=== PATIENT | male | born 1950 | race Caucasian/White ===

== ENCOUNTER 2021-03-25 06:12 | Outpatient (REF) | payer MEDICARE, SELFPAY ==
[2021-03-25 11:29] LABS: MANUAL DIFF FLAG NO
[2021-03-25 11:40] LABS: Basophils Percent Auto 0.5 % (0-2); Eosinophils Absolute Auto 0.4 X10*3/uL (0.0-0.4); Eosinophils Percent Auto 5.9 % (0-4); Hematocrit 46.6 % (42-52); Hemoglobin 15.7 g/dl (14.0-18.0); Imm Gran Abs Auto 0.04 X10*3/uL (0.00-0.03); Imm Gran Pct Auto 0.6 % (0.0-0.4); Lymphocytes Absolute Auto 1.9 X10*3/uL (1.2-4.9); Lymphocytes Percent Auto 29.6 % (20-40); Mean Corpuscular HGB Conc 33.7 g/dl (31.0-36.0); Mean Corpuscular Hemoglobin 31.9 pg (27.0-33.0); Mean Corpuscular Volume 94.7 fL (80-98); Mean Platelet Volume 10.5 fL (9.4-12.4); Monocytes Absolute Auto 0.7 X10*3/uL (0.1-1.2); Monocytes Percent Auto 10.4 % (2-11); Neutrophils Absolute Auto 3.4 X10*3/uL (2.0-8.3); Platelet Count 195 X10*3/uL (160-400); Red Blood Count 4.92 X10*6/uL (4.60-5.80); Red Cell Distribution Width 13.2 % (11.0-16.0); White Blood Count 6.3 X10*3/uL (4.8-10.8)
[2021-03-25 11:59] LABS: Alanine Aminotransferase 30 U/L (0-40); Albumin Level 4.2 g/dL (3.5-5.0); Alkaline Phosphatase 67 U/L (39-117); Anion Gap 11 (12-20); Aspartate Amino Transferase 30 U/L (5-37); Blood Urea Nitrogen 23 mg/dL (9-16); Calcium 9.5 mg/dL (8.4-10.2); Carbon Dioxide 31 mmol/L (22-29); Chloride 102 mmol/L (96-108); Cholesterol 198 mg/dL; Estimated Glomerular Filt Rate > 60; Glucose Fasting 105 mg/dL (60-99); HDL Cholesterol 82 mg/dL; LDL Cholesterol Calculated 95 mg/dl; Potassium 4.1 mmol/L (3.3-5.1); Sodium 140 mmol/L (135-145); Total Protein 6.6 g/dL (6.5-8.0); Triglycerides 108 mg/dL
[2021-03-25 12:18] LABS: Prostate Specific Antigen 1.56 ng/mL (<0.05-4.0)
== END 2021-03-25 06:13 | disposition home or self-care (01) ==
LOC: HO.HMGCLDS 06:12
PROVIDERS: PCP Internal Medicine; Visit Provider Internal Medicine
DX: E78.00 Pure hypercholesterolemia, unspecified (principal); I10 Essential (primary) hypertension; N40.0 Benign prostatic hyperplasia without lower urinary tract symptoms; Z12.5 Encounter for screening for malignant neoplasm of prostate
CPT/HCPCS: 36415; 80053; 80061; 84153; 85025

== ENCOUNTER 2021-05-02 09:23 | Outpatient (REF) | payer MEDICARE, SELFPAY | END 2021-05-02 09:24 | disposition home or self-care (01) | LOC: HO.SH 09:23 | PROVIDERS: Visit Provider Internal Medicine | DX: Z13.89 Encounter for screening for other disorder (principal) ==

== ENCOUNTER 2021-05-06 10:48 | Outpatient (REF) | payer MEDICARE, SELFPAY ==
--- NOTE | 2021-05-06 12:17 | MHC.AU.AHA ---
Adult Audiological Evaluation Date of Visit: 05/06/21 Reason for Appointment: Audiological evaluation to monitor the status of Mr. Zarate's hearing loss. He has a known bilateral, sensorineural hearing loss and uses hearing aids binaurally. He feels his hearing may be gradually decreasing. He denies any significant changes to his medical history since his last visit. Previous Hearing Test Results: [facility] [place] - Normal hearing at 250-500 Hz, sloping to a mild to severe sensorineural hearing loss from 750-8000 Hz bilaterally, right ear slightly worse than the left. Ear History: History of occupational noise exposure?: Yes Medical History: Medical History: High Blood Pressure, high cholesterol Allergies: penicillin Hearing Instrument History- Right Ear: Head Start Coordinator: [employer] Model: Cogito Q50-312 Serial Number: [id number] Battery Size: 312 Repair Warranty: 05/23/2016 Loss and Damage Warranty: 05/23/2015 Dispensed By: [facility] Date of Fittin03/02/2014 Hearing Instrument History- Left Ear: Head Start Coordinator: [employer] Model: U-Planner.comejslyhl Q50-312 Serial Number: [id number] Battery Size: 312 Warranty: 05/23/2016 Loss and Damage Warranty: 05/23/2015 Dispensed By: [facility] Date of Fittin03/02/2014 Otoscopy: Right Ear: Dry skin/wax occluding canal, removed with suction successfully Left Ear: Unremarkable Tympanometry: Tympanometry performed due to: To determine if cerumen blockage is fully occluding canal(s) Right Ear: Normal Middle Ear System (Type A) Left Ear: Normal Middle Ear System (Type A) Hearing Evaluation: Transducer(s) Used: Circumaural Headphones, Bone Conduction Method: Conventional Audiometry Stimuli Used: Pure Tones Right Ear: Description of Hearing: Normal hearing from 250-500 Hz, sloping to a mild to moderately-severe sensorineural hearing loss from 750-8000 Hz. Left Ear: Description of Hearing: Normal hearing from 250-500 Hz, sloping to a mild to severe sensorineural hearing loss from 750-8000 Hz. Speech Recognition Threshold (SRT): Method Used: Monitored Live Voice Stimuli Used: Spondee Words Right Ear: 20 dBHL Left Ear: 25 dBHL Word Discrimination: Method: Recorded Lists Word Lists Used: NU-6 Right Ear: 88% at 75 dBHL Left Ear: 80% at 75 dBHL Comparison: Compared to most recent evaluation: Slight improvement in right ear thresholds and significant improvement in right ear word recognition scores compared to testing from 2020. There was partially occluding cerumen in the right ear in 2020, which may have contributed to decreased thresholds. Recommendations: Audiological re-evaluation in one year. Hearing aid maintenance performed today. Hearing aid(s) reprogrammed with updated test results. Given the age of Mr. Zarate's current hearing aids, updated amplification is recommended. Discussed available hearing aid styles and technologies. Mr. Zarate will consider his options and he was welcomed to return for a hearing aid consultation if he decides he would like to pursue new hearing aids through our clinic. Diagnosis: Primary Diagnosis: H90.3 Bilateral Sensorineural Hearing Loss Secondary Diagnosis: H61.21 Impacted Cerumen, Right Ear Services Performed: Comprehensive Audiological Evaluation (CPT 07963) Tympanometry (CPT 67697) Signature: Provider: Eron Izaguirre, CCC-A
== END 2021-05-06 10:49 | disposition home or self-care (01) ==
LOC: HO.SH 10:48
PROVIDERS: Visit Provider Internal Medicine
DX: H90.3 Sensorineural hearing loss, bilateral (principal); H61.21 Impacted cerumen, right ear
CPT/HCPCS: 92557; 92567

== ENCOUNTER 2021-05-06 11:59 | Outpatient (REF) | payer SELFPAY | END 2021-05-06 12:00 | disposition home or self-care (01) | LOC: HO.HAP 11:59 | PROVIDERS: Visit Provider Internal Medicine | DX: Z46.1 Encounter for fitting and adjustment of hearing aid (principal); H90.3 Sensorineural hearing loss, bilateral | CPT/HCPCS: V5267 ==

== ENCOUNTER 2022-03-18 06:04 | Outpatient (REF) | payer MEDICARE, SELFPAY ==
[2022-03-18 11:17] LABS: MANUAL DIFF FLAG NO
[2022-03-18 11:26] LABS: Basophils Percent Auto 0.7 % (0-2); Eosinophils Absolute Auto 0.3 X10*3/uL (0.0-0.4); Eosinophils Percent Auto 5.9 % (0-4); Hematocrit 47.9 % (42.0-52.0); Hemoglobin 15.8 g/dl (14.0-18.0); Imm Gran Abs Auto 0.02 X10*3/uL (0.00-0.03); Imm Gran Pct Auto 0.4 % (0.0-0.4); Lymphocytes Absolute Auto 1.6 X10*3/uL (1.2-4.9); Lymphocytes Percent Auto 28.7 % (20-40); Mean Corpuscular Hemoglobin 31.2 pg (27.0-33.0); Mean Corpuscular Volume 94.7 fL (80.0-98.0); Mean Platelet Volume 10.6 fL (9.4-12.4); Monocytes Absolute Auto 0.7 X10*3/uL (0.1-1.2); Monocytes Percent Auto 12.4 % (2-11); Neutrophils Absolute Auto 2.9 x10*3/uL (2.0-8.3); Neutrophils Percent Auto 51.9 % (45-73); Platelet Count 209 X10*3/uL (160-400); Red Blood Count 5.06 X10*6/uL (4.60-5.80); Red Cell Distribution Width 13.6 % (11.0-16.0); White Blood Count 5.6 X10*3/uL (4.8-10.8)
[2022-03-18 11:50] LABS: Alanine Aminotransferase 23 U/L (0-40); Albumin Level 4.5 g/dL (3.5-5.0); Alkaline Phosphatase 68 U/L (39-117); Anion Gap 12 (12-20); Aspartate Amino Transferase 24 U/L (5-37); Bilirubin Total 1.4 mg/dL (0.0-1.0); Blood Urea Nitrogen 20 mg/dL (9-16); Calcium 9.4 mg/dL (8.4-10.2); Carbon Dioxide 31 mmol/L (22-29); Chloride 101 mmol/L (96-108); Cholesterol 222 mg/dL; Estimated Glomerular Filt Rate > 60; Glucose Fasting 109 mg/dL (60-99); HDL Cholesterol 92 mg/dL; LDL Cholesterol Calculated 115 mg/dl; Sodium 140 mmol/L (135-145); Total Protein 7.1 g/dL (6.5-8.0); Triglycerides 78 mg/dL
[2022-03-18 11:59] LABS: Appearance Urine CLEAR; Color Urine YELLOW; Glucose Urine UA NEG (NEG); Leukocyte Esterase Urine NEG (NEG); Nitrite Urine NEG (NEG); PH 6.5 (5.0-8.0); Urine Blood NEG (NEG); Urine Ketones NEG (NEG); Urine Protein NEG (NEG-TRACE)
[2022-03-18 12:07] LABS: Prostate Specific Antigen 1.85 ng/mL (<0.05-4.0)
== END 2022-03-18 06:05 | disposition home or self-care (01) ==
LOC: HO.HMGCLDS 06:04
PROVIDERS: PCP Internal Medicine; Visit Provider Internal Medicine
DX: Z12.5 Encounter for screening for malignant neoplasm of prostate (principal); N40.0 Benign prostatic hyperplasia without lower urinary tract symptoms; E78.00 Pure hypercholesterolemia, unspecified; I10 Essential (primary) hypertension
CPT/HCPCS: 36415; 80053; 80061; 81003; 84153; 85025

== ENCOUNTER 2022-06-26 08:07 | Outpatient (REF) | payer MEDICARE, SELFPAY | END 2022-06-26 08:08 | disposition home or self-care (01) | LOC: HO.SH 08:07 | PROVIDERS: Visit Provider Internal Medicine | DX: Z01.118 Encounter for examination of ears and hearing with other abnormal findings (principal); H90.3 Sensorineural hearing loss, bilateral | CPT/HCPCS: 92557; 92567 ==

== ENCOUNTER 2023-04-06 06:50 | Outpatient (REF) | payer MEDICARE, SELFPAY ==
[2023-04-06 11:37] LABS: MANUAL DIFF FLAG NO
[2023-04-06 11:56] LABS: Basophils Percent Auto 0.5 % (0-2); Eosinophils Absolute Auto 0.3 X10*3/uL (0.0-0.4); Eosinophils Percent Auto 4.5 % (0-4); Hematocrit 46.3 % (42.0-52.0); Hemoglobin 15.1 g/dl (14.0-18.0); Imm Gran Abs Auto 0.02 X10*3/uL (0.00-0.03); Imm Gran Pct Auto 0.3 % (0.0-0.4); Lymphocytes Absolute Auto 1.6 X10*3/uL (1.2-4.9); Lymphocytes Percent Auto 27.6 % (20-40); Mean Corpuscular HGB Conc 32.6 g/dl (31.0-36.0); Mean Corpuscular Hemoglobin 30.6 pg (27.0-33.0); Mean Corpuscular Volume 93.9 fL (80.0-98.0); Monocytes Absolute Auto 0.7 X10*3/uL (0.1-1.2); Monocytes Percent Auto 11.3 % (2-11); Neutrophils Absolute Auto 3.2 x10*3/uL (2.0-8.3); Neutrophils Percent Auto 55.8 % (45-73); Platelet Count 201 X10*3/uL (160-400); Red Blood Count 4.93 X10*6/uL (4.60-5.80); Red Cell Distribution Width 14.9 % (11.0-16.0); White Blood Count 5.7 X10*3/uL (4.8-10.8)
[2023-04-06 12:32] LABS: Alanine Aminotransferase 26 U/L (0-40); Albumin Level 4.2 g/dL (3.5-5.0); Alkaline Phosphatase 58 U/L (39-117); Anion Gap 10 (12-20); Aspartate Amino Transferase 29 U/L (5-37); Bilirubin Total 0.8 mg/dL (0.0-1.0); Blood Urea Nitrogen 17 mg/dL (9-16); Calcium 9.6 mg/dL (8.4-10.2); Carbon Dioxide 32 mmol/L (22-29); Chloride 103 mmol/L (96-108); Cholesterol 209 mg/dL (<200); Estimated Glomerular Filt Rate > 60; Glucose Fasting 112 mg/dL (60-99); HDL Cholesterol 98 mg/dL (>40); LDL Cholesterol Calculated 94 mg/dL (<100); Potassium 4.1 mmol/L (3.3-5.1); Sodium 141 mmol/L (135-145); Total Protein 6.8 g/dL (6.5-8.0); Triglycerides 89 mg/dL (<150)
== END 2023-04-06 06:51 | disposition home or self-care (01) ==
LOC: HO.HMGCLDS 06:50
PROVIDERS: PCP Internal Medicine; Visit Provider Internal Medicine
DX: I10 Essential (primary) hypertension (principal); E78.00 Pure hypercholesterolemia, unspecified; N40.0 Benign prostatic hyperplasia without lower urinary tract symptoms; Z12.5 Encounter for screening for malignant neoplasm of prostate
CPT/HCPCS: 36415; 80053; 80061; 84153; 85025

== ENCOUNTER 2023-06-04 14:51 | Outpatient (REF) | payer MEDICARE, SELFPAY ==
[2023-06-04 16:08] LABS: MANUAL DIFF FLAG NO
[2023-06-04 16:11] LABS: Basophils Percent Auto 0.4 % (0-2); Eosinophils Absolute Auto 0.2 X10*3/uL (0.0-0.4); Eosinophils Percent Auto 1.9 % (0-4); Hematocrit 41.4 % (42.0-52.0); Hemoglobin 13.9 g/dl (14.0-18.0); Imm Gran Abs Auto 0.02 X10*3/uL (0.00-0.03); Imm Gran Pct Auto 0.3 % (0.0-0.4); Lymphocytes Absolute Auto 1.4 X10*3/uL (1.2-4.9); Lymphocytes Percent Auto 18.3 % (20-40); Mean Corpuscular HGB Conc 33.6 g/dl (31.0-36.0); Mean Corpuscular Hemoglobin 31.1 pg (27.0-33.0); Mean Corpuscular Volume 92.6 fL (80.0-98.0); Mean Platelet Volume 10.5 fL (9.4-12.4); Monocytes Absolute Auto 0.8 X10*3/uL (0.1-1.2); Monocytes Percent Auto 9.5 % (2-11); Neutrophils Absolute Auto 5.5 x10*3/uL (2.0-8.3); Neutrophils Percent Auto 69.6 % (45-73); Platelet Count 249 X10*3/uL (160-400); Red Blood Count 4.47 X10*6/uL (4.60-5.80); Red Cell Distribution Width 13.7 % (11.0-16.0); White Blood Count 7.9 X10*3/uL (4.8-10.8)
[2023-06-04 16:58] LABS: Alanine Aminotransferase 25 U/L (0-40); Albumin Level 3.9 g/dL (3.5-5.0); Alkaline Phosphatase 69 U/L (39-117); Anion Gap 12 (12-20); Aspartate Amino Transferase 31 U/L (5-37); Bilirubin Total 0.6 mg/dL (0.0-1.0); Blood Urea Nitrogen 19 mg/dL (9-16); C Reactive Protein < 0.10 mg/dL (< or = 0.50); Calcium 9.4 mg/dL (8.4-10.2); Carbon Dioxide 27 mmol/L (22-29); Chloride 106 mmol/L (96-108); Estimated Glomerular Filt Rate > 60; Glucose Random 132 mg/dL (60-115); Potassium 3.7 mmol/L (3.3-5.1); Sodium 141 mmol/L (135-145); Total Protein 6.5 g/dL (6.5-8.0)
== END 2023-06-04 14:52 | disposition home or self-care (01) ==
LOC: HO.HMGCLDS 14:51
PROVIDERS: PCP Internal Medicine; Visit Provider Internal Medicine
DX: R51.9 Headache, unspecified (principal); I10 Essential (primary) hypertension; E78.00 Pure hypercholesterolemia, unspecified
CPT/HCPCS: 36415; 80053; 85025; 86140

== ENCOUNTER 2023-10-06 09:34 | Outpatient (REF) | payer SELFPAY | END 2023-10-06 09:35 | disposition home or self-care (01) | LOC: HO.HAP 09:34 | PROVIDERS: Visit Provider Internal Medicine | DX: Z13.89 Encounter for screening for other disorder (principal) ==

== ENCOUNTER 2023-10-14 08:47 | Outpatient (REF) | payer SELFPAY | END 2023-10-14 08:48 | disposition home or self-care (01) | LOC: HO.HAP 08:47 | PROVIDERS: Visit Provider Internal Medicine | DX: Z46.1 Encounter for fitting and adjustment of hearing aid (principal) | CPT/HCPCS: V5299 ==

== ENCOUNTER 2023-11-24 06:26 | Day surgery (SDC) | payer MEDICARE, SELFPAY ==
[2023-11-19 09:16] VITALS: BMI 25.5
[2023-11-24 06:31] VITALS: BP 151/98; PULSE 58; RESP 19; TEMP 36.8; O2SAT 97; BMI 25.4
[2023-11-24] MEDS: Lactated Ringers 1,000 ML 50 ML IVCONT (07:02)
--- NOTE | 2023-11-24 07:17 | HO.ANESPROP2 ---
[facility] Past Medical History Medical History (Updated 11/19/23 @ 09:17 by Sonia Moscoso RN) Elevated cholesterol HTN (hypertension) Family History Family history of problems with anesthesia: No Surgical History Surgical History (Updated 11/19/23 @ 09:17 by Sonia Moscoso RN) Hx of vasectomy H/O colonoscopy History of Problems with Anesthesia: No Social History Social History (Updated 11/19/23 @ 09:22 by Sonia Moscoso RN) Patient Tobacco Use Status: Former Tobacco user Quit Date: >10 years ago Tobacco use type: Cigarette Are you DNR?: No Advance Directives: No Advance Directives Information Provided: Yes Meds Allergies Allergy/AdvReac Type Severity Reaction Status Date / Time Penicillins [PENICILLINS] Allergy Intermediate HIVES Verified 11/19/23 09:16 Active Medications: Current Medications Lactated Ringer's (Lr) 1,000 mls @ 50 mls/hr IVCONT .Q20H MAXIMO Last Admin: 11/24/23 07:02 Dose: 50 mls/hr Sodium Biphosphate/Sodium Phosphate (Sodium Phosphate,Bucks-Dibasic 133 Ml Enema) 133 ml [place] ONCE PRN PRN Reason: Poor Colonoscopy Prep Results Home Medications ?Medication ?Instructions ?Recorded ?Confirmed ?Last Taken ?Type atorvastatin 10 mg tablet 10 mg PO DAILY 11/19/23 11/19/23 11/22/23 History flaxseed oil 1,000 mg capsule 1,000 mg PO DAILY 11/19/23 11/19/23 11/22/23 History lisinopril 5 mg tablet 5 mg PO DAILY 11/19/23 11/19/23 11/24/23 History multivitamin 1 tab PO DAILY 11/19/23 11/19/23 11/22/23 History niacin 250 mg tablet,extended 250 mg PO DAILY 11/19/23 11/19/23 11/22/23 History release Exam Height,Weight and Vital Signs: Height 5 ft 8.25 in Weight 76.3 kg Last Vital Signs Temp 98.2 F 11/24/23 06:31 Pulse 58 11/24/23 06:31 Resp 19 11/24/23 06:31 BP 151/98 H 11/24/23 06:31 Pulse Ox 97 11/24/23 06:31 O2 Del Method Room Air 11/24/23 06:31 Airway Mallampati Class: II TM Dist: >3cm Neck ROM: Full Loose/Missing/Broken Teeth: No Heart: rrr Lungs: cta Assessment and Plan Assessment Anesthesia Assessment: Anesthesia Plan Discussed and Chart Reviewed Final Anesthetic Review Family History of Problems with Anesthesia: No History of Problems with Anesthesia: No NPO: Yes ASA Class: II Final Preanesthetic Review: No Changes in Pt Med Stat, Meds/Allgs Chart Reviewed, Consent Obtained/Reviewed and Anes Risks/Benef Reviewed Patient Risk: Intermediate Procedure Risk: Intermediate Anesthetic Plan Anesthetic Plan: MAC: Disposition: Standard PACU
[2023-11-24 08:20] VITALS: BP 110/71; PULSE 62; RESP 18; TEMP 36.6; O2SAT 100
--- NOTE | 2023-11-24 08:22 | PM.OP ---
Brief Operative Note Date of Service: 11/24/23 Pre-op diagnosis: Screening Post-op diagnosis: other (Diverticulosis) Procedure: Colonoscopy to the cecum and TI Surgeon: Timothy Casper MD Anesthesia: MAC Was an Fertilizer Processing Supervisor used for this Procedure?: No Estimated blood loss (mL): 0 Pathology: none sent Condition: stable Disposition: PACU
[2023-11-24 08:35] VITALS: BP 122/79; PULSE 54; RESP 16; TEMP 36.6; O2SAT 100
--- NOTE | 2023-11-24 09:01 | OP_ITS ---
DATE OF SERVICE: 11/24/2023 SURGEON: Timothy Casper MD INDICATIONS: The patient presents for evaluation of colorectal cancer screening and personal history of tubular adenomas of the colon. Full consent was obtained from him for this, including risks of bleeding and perforation. PREOPERATIVE DIAGNOSIS: POSTOPERATIVE DIAGNOSIS: PROCEDURE PERFORMED: Colonoscopy to the cecum and terminal ileum. ESTIMATED BLOOD LOSS: COMPLICATIONS: ANESTHESIA: Monitored anesthesia care. ASSISTANTS: SPECIMENS: PREOPERATIVE DIAGNOSES: Colorectal cancer screening and personal history of tubular adenomas of the colon. POSTOPERATIVE DIAGNOSES: Colorectal cancer screening and personal history of tubular adenomas of the colon, sigmoid diverticulosis, and internal hemorrhoids. DESCRIPTION OF PROCEDURE: The patient was placed in the left lateral decubitus position. The digital rectal exam revealed no abnormalities. The Olympus video pediatric colonoscope was entered into the rectum and advanced easily to the cecum. Once in the cecum, I did identify normal-appearing cecal pouch with appendiceal orifice and a normal-appearing ileocecal valve. The terminal ileum was cannulated and appeared normal. The scope was withdrawn back in the colon. The entire cecum and ileocecal valve appeared normal. The scope was slowly withdrawn assessing all mucosal surfaces carefully. Preparation was excellent. I did not visualize any sign of polyps, colitis, or angiodysplasia. There was a mild amount of sigmoid diverticulosis. In the rectum, scope was retroflexed, visualizing internal hemorrhoids, but no other pathology. The rectal mucosa appeared normal. The scope was straightened and withdrawn from the patient. He tolerated the procedure well and was returned to recovery area in stable condition. IMPRESSION: 1. Diverticulosis. 2. Internal hemorrhoids. PLAN: Given his previous history of tubular adenomas, I would recommend a followup coloscopy in 5 years for further screening. He will otherwise see me on a p.r.n. basis. MD HELENA Levine/KAYLA / [phone]
== END 2023-11-24 09:09 | disposition home or self-care (01) ==
PROVIDERS: PCP Internal Medicine; Visit Provider Internal Medicine
PROC: 0DJD8ZZ Inspection of Lower Intestinal Tract, Via Natural or Artificial Opening Endoscopic (ICD-10-PCS; CPT 45378; principal; 2023-11-24 07:30)
DX: Z12.11 Encounter for screening for malignant neoplasm of colon (principal); K57.30 Diverticulosis of large intestine without perforation or abscess without bleeding; K64.8 Other hemorrhoids; Z86.010 Personal history of colon polyps; I10 Essential (primary) hypertension
CPT/HCPCS: 45378; J2704

== ENCOUNTER 2023-12-02 14:16 | Outpatient (REF) | payer MEDICARE, SELFPAY | END 2023-12-02 14:17 | disposition home or self-care (01) | LOC: HO.SH 14:16 | PROVIDERS: PCP Internal Medicine; Visit Provider Internal Medicine | DX: Z01.118 Encounter for examination of ears and hearing with other abnormal findings (principal); H90.3 Sensorineural hearing loss, bilateral | CPT/HCPCS: 92557 ==

== ENCOUNTER 2023-12-02 15:31 | Outpatient (REF) | payer SELFPAY ==
--- NOTE | 2023-12-02 15:55 | MHC.AU.HA3 ---
Hearing Instrument Follow-Up- Binaural Date of Visit: 12/02/23 Right Ear: Kraig, Model, Color, Serial Number: Carmelina Welch [id number] SN: [id number] Color: [employer] Team Member Repair Warranty: 05/23/2016 [employer] Team Member Loss and Damage Warranty: 05/23/2015 Battery Size: 312 Program Control Analyst/Slim Tube: 2xS Earmold/Dome/CShell/SlimTip:Large power dome with retention tail Type of Wax Guard: CeruStop Dispensed By: [facility] Date of Fittin03/02/2014 Left Ear: Kraig, Model, Color, Serial Number: Carmelina Welch [id number] SN: [id number] Color: Black [employer] Team Member Repair Warranty: 05/23/2016 [employer] Team Member Loss and Damage Warranty: 05/23/2015 Battery Size: 312 Program Control Analyst/Slim Tube: 2xS Earmold/Dome/CShell/SlimTip: Large power dome with retention tail Type of Wax Guard: CeruStop Dispensed By: [facility] Date of Fittin03/02/2014 Follow-Up Summary: Javier returned for updated hearing test and hearing aid maintenance. Cleaned hearing aids. Replaced domes, wax guards, and retention tails. Vacuumed microphones. Ran through dehumidifier. A listening check demonstrated hearing aids are amplifying clearly. Left agricultural researcher glued into hearing aid - Javier reported that his left agricultural researcher previously stopped working. Instead of bringing it here to be repaired, he purchased a new agricultural researcher elsewhere to fix it himself. He thought he needed glue to hold the agricultural researcher in the hearing aid. Advised left agricultural researcher now stuck. If breaks again, would likely need to send to [facility] [employer] for repair. However, given the age of his hearing aids, also discussed repair (when needed) vs replace. Javier is not interested in new hearing aids at this time. Reprogrammed to updated test, only minimal changes as hearing is stable and reran feedback analyzer. Javier is otherwise happy with his hearing aids and wants to continue to use them for as long as possible. Recommendations: Hearing instrument follow-up or maintenance as needed. Please contact our clinic with any questions or concerns. Diagnosis Code(s): Primary Diagnosis: H90.3 Bilateral Sensorineural Hearing Loss Signature: Provider: Diana Sandoval., [facility]
== END 2023-12-02 15:32 | disposition home or self-care (01) ==
LOC: HO.HAP 15:31
PROVIDERS: Visit Provider Internal Medicine
DX: Z46.1 Encounter for fitting and adjustment of hearing aid (principal); H90.3 Sensorineural hearing loss, bilateral
CPT/HCPCS: 92593

== ENCOUNTER 2024-04-04 06:03 | Outpatient (REF) | payer MEDICARE, SELFPAY ==
[2024-04-04 10:31] LABS: MANUAL DIFF FLAG NO
[2024-04-04 10:39] LABS: Basophils Percent Auto 0.6 % (0-2); Eosinophils Absolute Auto 0.3 X10*3/uL (0.0-0.4); Eosinophils Percent Auto 5.7 % (0-4); Hemoglobin 15.4 g/dl (14.0-18.0); Imm Gran Abs Auto 0.03 X10*3/uL (0.00-0.03); Imm Gran Pct Auto 0.6 % (0.0-0.4); Lymphocytes Absolute Auto 1.4 X10*3/uL (1.2-4.9); Lymphocytes Percent Auto 26.6 % (20-40); Mean Corpuscular HGB Conc 33.5 g/dl (31.0-36.0); Mean Corpuscular Hemoglobin 31.7 pg (27.0-33.0); Mean Corpuscular Volume 94.7 fL (80.0-98.0); Mean Platelet Volume 10.4 fL (9.4-12.4); Monocytes Absolute Auto 0.6 X10*3/uL (0.1-1.2); Monocytes Percent Auto 11.2 % (2-11); Neutrophils Absolute Auto 2.9 x10*3/uL (2.0-8.3); Neutrophils Percent Auto 55.3 % (45-73); Platelet Count 203 X10*3/uL (160-400); Red Blood Count 4.86 X10*6/uL (4.60-5.80); Red Cell Distribution Width 14.1 % (11.0-16.0); White Blood Count 5.3 X10*3/uL (4.8-10.8)
[2024-04-04 11:07] LABS: Alanine Aminotransferase 33 U/L (0-40); Albumin Level 4.2 g/dL (3.5-5.0); Alkaline Phosphatase 63 U/L (39-117); Anion Gap 13 (12-20); Aspartate Amino Transferase 31 U/L (5-37); Bilirubin Total 0.8 mg/dL (0.0-1.0); Blood Urea Nitrogen 18 mg/dL (9-16); Calcium 9.8 mg/dL (8.4-10.2); Carbon Dioxide 28 mmol/L (22-29); Chloride 103 mmol/L (96-108); Cholesterol 218 mg/dL (<200); Estimated Glomerular Filt Rate > 60; Glucose Fasting 112 mg/dL (60-99); HDL Cholesterol 99 mg/dL (>40); LDL Cholesterol Calculated 100 mg/dL (<100); Potassium 4.2 mmol/L (3.3-5.1); Sodium 140 mmol/L (135-145); Triglycerides 98 mg/dL (<150)
[2024-04-04 11:09] LABS: Prostate Specific Antigen 1.95 ng/mL (<0.05-4.0)
== END 2024-04-04 06:04 | disposition home or self-care (01) ==
LOC: HO.HMGCLDS 06:03
PROVIDERS: PCP Internal Medicine; Visit Provider Internal Medicine
DX: I10 Essential (primary) hypertension (principal); E78.00 Pure hypercholesterolemia, unspecified; Z12.5 Encounter for screening for malignant neoplasm of prostate; N40.1 Benign prostatic hyperplasia with lower urinary tract symptoms
CPT/HCPCS: 36415; 80053; 80061; 84153; 85025

== ENCOUNTER 2025-04-10 11:16 | Outpatient (AMB) | payer MEDICARE, SELFPAY ==
--- NOTE | 2025-04-10 11:18 | A.OFFPC_ITS ---
Vital Signs 04/10/25 11:23 Height 5 ft 8.5 in Weight 168 lb BMI 25.2 BP 128/74 Blood Pressure Location Rt brachial Position Sitting Respiration 17 Pulse 67 Pulse Source Pulse Oximeter Temp 97.1 F Temp Source Temporal Artery Scan Pulse Oximetry (%) 97 Oxygen Delivery Method Room Air Intake Visit Reasons: Annual Patrol Community Service Officer Required: No Accompanied by: Self / Same As Patient Allergies Penicillins (PENICILLINS) Allergy (Intermediate, Verified 04/10/25 11:18) HIVES Tobacco use date assessed: 04/10/25 Fall risk assessment: No Falls in past year Last assessed Fall Risk: 04/10/25 HPI HPI Comments History of Present Illness Details The patient is a 75-year-old male presenting with requests for routine follow-up and management of chronic conditions and routine screenings. He has not had his hearing tested in almost two years and desires to have it checked. He reports itching in the right ear around the hearing aid placement. Also noted during the visit was a discussion about toenail fungus observed years ago, for which home remedies, specifically Vicks, are being used instead of prescription medications. The previous recommendation of toenail removal by a ultrasonographer was mentioned due to the challenges of effective oral medication. No acute exacerbations were noted for these conditions during the visit. The patient provided a history of smoking, having smoked two or three cigarettes a day from age 18 until approximately age 63, which is about 45 years, and has since been abstinent for 12 to 15 years. He walks two miles daily, stays physically active, and fluctuates in weight between 160 to 171 lbs. The patient denied any chest pain, shortness of breath, headaches, change in vision, nausea, vomiting, abdominal pain, or weight loss. The patient has a familial predisposition to cancer, with a family history including his father having from a brain tumor, a brother from lung cancer, and another brother recently diagnosed with stage 4 lung cancer. The patient asks about the need for PSA (Prostate-Specific Antigen) screening due to the heavy presence of cancer in his family, although his PSA levels last year were normal. There is also a history of cardiovascular concerns in his family, including strokes and arteriosclerosis. He monitors his high cholesterol and hypertension with atorvastatin and lisinopril, respectively. He expresses concerns regarding diabetes due to having family members with type 1 diabetes, but there is no personal history of diabetes other than impaired fasting glucose, and he engages in lifestyle activities to maintain his health. Medical History: - Sensorineural Hearing Loss - Onychomycosis - Essential Hypertension - Hyperlipidemia - Impaired Fasting Glucose Surgical History: - Tonsillectomy at age 29 - Removal of a small lesion on the head - Vasectomy - Back injury with non-surgical interven tion in 1983 Medications: - Atorvastatin (for hyperlipidemia) - Lisinopril 5 mg (for hypertension) - Flaxseed oil (supplement) - Multivitamins (supplement) Family History: - Father: Brain tumor at age 37 - Brother: Lung cancer () - Another brother: Stage 4 lung cancer - Mother: Stroke, history of strokes in family and arteriosclerosis - Son and granddaughter: Type 1 diabetes Social History: - Former smoker, abstinent for approxima tely 12-15 years (20 PPD) - Consumes alcohol socially, mainly on w eekends - Exercises regularly by walking two mil es daily - Lives with , active lifestyle [facility] Medical History (Updated 04/10/25 @ 11:51 by Tyler Morejon MD) Prostate cancer Screening for lung cancer Elevated cholesterol HTN (hypertension) Surgical History (Updated 04/05/25 @ 17:09 by Selena Miranda) Hx of vasectomy H/O colonoscopy (~11/24/23) Social History (Updated 11/19/23 @ 09:22 by Sonia Moscoso RN) Housing: House Patient Tobacco Use Status: Former Tobacco user Tobacco use type: Cigarette e-Cigarette/Vaping Use: Never Used service: Yes Current occupational status: retired Questionnaire PHQ-9 Over the last 2 weeks, how often have you been bothered by any of the following problems? 1. Little interest or pleasure in doing things: not at all 2. Feeling down, depressed, or hopeless: not at all 3. Trouble falling or staying asleep, or sleeping too much: not at all 4. Feeling tired or having little energy: not at all 5. Poor appetite or overeating: not at all 6. Feeling bad about yourself - or that you are a failure or have let yourself or your family down: not at all 7. Trouble concentrating on things, such as reading the newspaper or watching television: not at all 8. Moving or speaking so slowly that other people could have noticed. Or the opposite - being so fidgety or restless that you have been moving around a lot more than usual: not at all 9. Thoughts that you would be better off or of hurting yourself in some way: not at all Total score: 0 Depression Screening Interpretation: Negative Depression Screening Done: Yes 66172 - PHQ-9 Billing: Yes Source: Developed by Drs. Timothy Cuevas, MariaI nes Barrera, Chepe Evans and colleagues, with an educational carmelina from [employer]. Thrive Questionnaire Date Thrive assessed: 04/10/25 What is your living situation today?: I have a steady place to live Within the past 12 months, did the food you bought not last and you didn't have the money to get more?: Never true Within the past 12 months, did you worry whether your food would run out before you got money to buy more?: Never true Do you have trouble paying for medicines?: No Do you have trouble getting transportation to medical appointments?: No Do you have trouble paying your heating and electricity bill?: No Do you have trouble taking care of your child, family member or friend?: No Do you have trouble with day-to-day activities such as bathing, preparing meals, shopping, managing finances, etc.?: No Are you currently unemployed and looking for a job?: No Are you interested in more education?: No THRIVE Score: 0 AUDIT C Alcohol Use Questionnaire (AUDIT-C) 1. How often do you have a drink containing alcohol?: 2-3 times a week 2. How many drinks containing alcohol do you have on a typical day when you are drinking?: 1 or 2 3. How often do you have six or more drinks on one occasion?: Never Total Score: 3 Score Reviewed/Action Taken: No LAKEISHA-7 AMB Questionnaire LAKEISHA-7 Date LAKEISHA - 7 assessed: 04/10/25 Feeling nervous, anxious, or on edge: 0 = Not at all Not being able to stop or control worryin = Not at all Worrying too much about different things: 0 = Not at all Trouble relaxin = Not at all Being so restless that it is hard to sit still: 0 = Not at all Becoming easily annoyed or irritable: 0 = Not at all Feeling afraid as if something awful might happen: 0 = Not at all Total LAKEISHA-7 score (0-4 normal; 5-9 mild; 10-14 moderate; 15-21 severe): 0 Source: Developed by Drs. Timothy Cuevas, Maria Ines Barrera, Chepe Evans and colleagues, with an educational carmelina from [employer]. LAKEISHA-7 Assessment Billing LAKEISHA-7 Assessment Tool: LAKEISHA-7 Assessment 48148 Review of Systems Const Details: - General: Denies weight change, fatigue - Cardiovascular: Denies chest pain, palpitations - Respiratory: Denies shortness of breath - Gastrointestinal: Denies nausea, vomiting, abdominal pain - Neurological: Denies headaches, vision changes - Psychiatric: Denies feeling depressed, low energy All systems reviewed & are unremarkable except as noted in HPI and below Physical exam (Primary Care) Vital Signs: Last Vital Signs Temp 97.1 F 04/10/25 11:23 Pulse 67 04/10/25 11:23 Resp 17 04/10/25 11:23 BP 128/74 04/10/25 11:23 Pulse Ox 97 04/10/25 11:23 Oxygen Delivery Method Room Air 04/10/25 11:23 BMI result Body Mass Index 25.2 Tobacco/Smoking Status: Tobacco use Status Tobacco use date assessed 04/10/25 04/10/25 11:26 Patient Tobacco Use Status Former Tobacco user 04/10/25 11:26 Tobacco use type Cigarette 04/10/25 11:26 e-Cigarette/Vaping Use Never Used 04/10/25 11:26 Depression Screening Interpretation: Negative Const Other: General: +Alert and oriented, Well nourished, No acute distress. Eye: Pupils are equal, round and reactive to light, Intact accommodation, Extraocular movements are intact, Normal conjunctiva, Vision unchanged. HENT: Normocephalic, Atraumatic, Tympanic membranes are clear, Hearing impaired (wears hearing aids), Oral mucosa is moist, No pharyngeal erythema, Ear canals patent, Right ear itching. Respiratory: Lungs CTA bilaterally, No wheeze, Respirations are non-labored. Cardiovascular: Regular rate, Regular rhythm, S1 auscultated, S2 auscultated, No murmur, Good pulses equal in all extremities, Normal peripheral perfusion, No edema. Gastrointestinal: Soft, Non-tender, Non-distended, Normal bowel sounds, No organomegaly. Musculoskeletal: Normal range of motion, Normal strength, No tenderness, No sw elling, No deformity, Normal gait. Integumentary: Warm, Dry, [place], Intact, Lesions on left hand, Less hair on legs. Neurologic: Alert, Oriented, Normal sensory, Normal motor function, No focal defects, Cranial Nerves II-XII are grossly intact, Normal deep tendon reflexes. Psychiatric: Cooperative, Appropriate mood & affect, Normal judgment. Coding Level of Care Code New Pt Level 5 (26749) New Pt Prev Care >65yr (35774) Diagnoses HTN (hypertension) I10 Elevated cholesterol E78.00 Screening for lung cancer Z12.2 Prostate cancer C61 Hearing decreased H91.90 Additional Codes PHQ-9 - 33159 - PHQ-9 Billing: Yes ([id number]) LAKEISHA-7 Assessment Billing - LAKEISHA-7 Assessment Tool: LAKEISHA-7 Assessment 23608 ([id number]) Assessment & Plan Assessment & Plan (1) HTN (hypertension): Comment: - Continue lisinopril 5 mg. - Maintain exercise and healthy lifestyle. Code(s): I10 - Essential (primary) hypertension Category: Medical (2) Elevated cholesterol: Comment: - Continue atorvastatin. - Importance of diet discussed. Code(s): E78.00 - Pure hypercholesterolemia, unspecified Category: Medical (3) Screening for lung cancer: Comment: - 20 PPD Quit 12 years ago - Order LDCT Code(s): Z12.2 - Encounter for screening for malignant neoplasm of respiratory organs Category: Medical (4) Prostate cancer: Comment: - Order PSA Code(s): C61 - Malignant neoplasm of prostate Category: Medical (5) Hearing decreased: Comment: - Discussed the need for hearing evaluation. - Recommended moisturizing cream for ear irritation. Code(s): H91.90 - Unspecified hearing loss, unspecified ear Category: Medical Plan In today's consultation, we discussed the management of the patient?s existing chronic conditions, including sensorineural hearing loss, onychomycosis, hypertension, hyperlipidemia, and impaired fasting glucose. We considered various management strategies for each condition. I explained the importance of continued follow-up and monitoring, especially for the management of cholesterol and glucose levels. We acknowledged the patient's adherence to medication and healthy lifestyle habits such as regular exercise. I addressed the patient?s concerns regarding the potential risk of cancer given the family history and assured him that screenings were up to date with a PSA normal from last year, and further monitoring will continue as appropriate. We discussed the potential requirements for podiatric assessment for onychomycosis, and I clarified the home remedy's role and limitations. Lastly, I emphasized the importance of regular screenings for maintaining overall health and well-being, alongside the scheduled routine blood tests, including an A1c test, to closely monitor his glucose. Orders: Orders Lipid Panel Today E78.00 - Pure hypercholesterolemia, unspecified, I10 - Essential (primary) hypertension TSH reflex Free T4 Today E78.00 - Pure hypercholesterolemia, unspecified, I10 - Essential (primary) hypertension CT lung screening Today Z12.2 - Encounter for screening for malignant neoplasm of respiratory organs Complete Blood Count Auto Diff Today E78.00 - Pure hypercholesterolemia, unspecified, I10 - Essential (primary) hypertension Comprehensive Met. Panel Today E78.00 - Pure hypercholesterolemia, unspecified, I10 - Essential (primary) hypertension Hemoglobin A1c Today E78.00 - Pure hypercholesterolemia, unspecified, I10 - Essential (primary) hypertension Syphilis Screen Today E78.00 - Pure hypercholesterolemia, unspecified, I10 - Essential (primary) hypertension Vitamin D 25-OH Total Today E78.00 - Pure hypercholesterolemia, unspecified, I10 - Essential (primary) hypertension Hepatitis A,B,C Profile Today E78.00 - Pure hypercholesterolemia, unspecified, I10 - Essential (primary) hypertension HIV Ab/Ag Today E78.00 - Pure hypercholesterolemia, unspecified, I10 - Essential (primary) hypertension PSA,Total (Free>4and<10) Today C61 - Malignant neoplasm of prostate Referrals Audiology Referral H91.90 - Unspecified hearing loss, unspecified ear Scribe Plan - Not visible on output: - Schedule a hearing evaluation to assess hearing aid needs. - Use moisturizing cream as needed for ear discomfort and consider replacing hearing aid buds. - Follow ultrasonographer recommendations for toenail management if necessary. - Continue taking lisinopril and atorvastatin as prescribed. - Maintain regular exercise and balanced diet to manage hypertension and cholesterol. - Attend follow-up appointments as scheduled to review A1c results and continuing health monitoring. - Reach out if experiencing any new symptoms or health concerns.
[2025-04-10 11:23] VITALS: BP 128/74; PULSE 67; RESP 17; TEMP 36.2; O2SAT 97; BMI 25.2
== END 2025-04-10 12:38 | disposition home or self-care (01) ==
LOC: HO.HMCHD 11:17
PROVIDERS: PCP Student in an Organized Health Care Education/Training Program; Visit Provider Student in an Organized Health Care Education/Training Program
DX: Z00.00 Encounter for general adult medical examination without abnormal findings (principal); I10 Essential (primary) hypertension; E78.00 Pure hypercholesterolemia, unspecified; C61 Malignant neoplasm of prostate; Z12.2 Encounter for screening for malignant neoplasm of respiratory organs; H91.90 Unspecified hearing loss, unspecified ear

== ENCOUNTER 2025-04-10 11:55 | Outpatient (REF) | payer MEDICARE, SELFPAY ==
[2025-04-10 13:22] LABS: MANUAL DIFF FLAG NO
[2025-04-10 13:28] LABS: Hematocrit 44.7 % (42.0-52.0); Hemoglobin 15.1 g/dl (14.0-18.0); Imm Gran Abs Auto 0.02 X10*3/uL (0.00-0.03); Imm Gran Pct Auto 0.3 % (0.0-0.4); Lymphocytes Absolute Auto 1.8 X10*3/uL (1.2-4.9); Mean Corpuscular HGB Conc 33.8 g/dl (31.0-36.0); Mean Corpuscular Hemoglobin 31.1 pg (27.0-33.0); Mean Corpuscular Volume 92.2 fL (80.0-98.0); NRBC Abs Auto 0.000 X10*3/uL (0.0-0.012); NRBC Pct Auto 0.0 /100WBC (0.0-0.2); Platelet Count 191 X10*3/uL (160-400); Red Blood Count 4.85 X10*6/uL (4.60-5.80); White Blood Count 6.3 X10*3/uL (4.8-10.8)
[2025-04-10 13:55] LABS: Hemoglobin A1C 146.1223 umol/L; Total Hemoglobin (HGBA1C) 3947.9842 umol/L
[2025-04-10 13:59] LABS: Alanine Aminotransferase 33 U/L (0-40); Albumin Level 4.4 g/dL (3.5-5.0); Alkaline Phosphatase 61 U/L (39-117); Anion Gap 11 (12-20); Aspartate Amino Transferase 35 U/L (5-37); Blood Urea Nitrogen 18 mg/dL (9-16); Calcium 9.1 mg/dL (8.4-10.2); Carbon Dioxide 31 mmol/L (22-29); Chloride 104 mmol/L (96-108); Cholesterol 192 mg/dL (<200); Estimated Glomerular Filt Rate > 60; HDL Cholesterol 83 mg/dL (>40); Potassium 3.9 mmol/L (3.3-5.1); Sodium 142 mmol/L (135-145); Total Protein 6.6 g/dL (6.5-8.0); Triglycerides 71 mg/dL (<150)
[2025-04-10 14:12] LABS: PSA,Total (Free>4and<10) 4.26 ng/mL (0.00-4.00)
[2025-04-11 08:32] LABS: HBS Num1 0.18 mIU/mL (0-7.99); HBc Num1 0.04 S/CO (0.00-0.79); HBsAGNum1 0.45 S/CO (0.00-0.99); HIV Num 1 0.06 S/CO (0.00-0.99); Hepatitis A Antibody IgM 0.12 Index (0-0.79); Hepatitis B Surface Antigen Negative (Negative); ~HepC Num1 0.08 S/CO (0.00-0.79); ~Hepatitis A Antibody IgM Nonreactive (Nonreactive); ~Hepatitis B Surface Antibody NONREACTIVE (Nonreactive); ~Hepatitis C Antibody Nonreactive (Nonreactive)
[2025-04-11 08:44] LABS: Syphilis Screen Nonreactive (Nonreactive)
[2025-04-11 13:49] LABS: Free Prostate Spec Ag 0.8 ng/mL; Percent Free Prostate Spec Ag 22 % (calc) (>25)
== END 2025-04-10 11:56 | disposition home or self-care (01) ==
LOC: HO.10HDL 11:55
PROVIDERS: Visit Provider Student in an Organized Health Care Education/Training Program
DX: Z00.00 Encounter for general adult medical examination without abnormal findings (principal); Z12.5 Encounter for screening for malignant neoplasm of prostate; Z13.1 Encounter for screening for diabetes mellitus; E78.00 Pure hypercholesterolemia, unspecified; C61 Malignant neoplasm of prostate; I10 Essential (primary) hypertension; H91.90 Unspecified hearing loss, unspecified ear
CPT/HCPCS: 36415; 80053; 80061; 82306; 83036; 84153; 84154; 84443; 85025; 86704; 86706; 86709; 86780; 86803; 87340; 87389; 96127; 99387

== ENCOUNTER 2025-05-09 07:49 | Outpatient (AMB) | payer MEDICARE, SELFPAY ==
--- OUTSIDE RECORDS SUMMARY | 2023-11-24 03:30 | XMS_ITS ---
Author Organization [facility] Address [address] [place] [address] Care Team Providers [facility] [employer] Name Role Phone Malachi (RETIRED) Carlos FONSECA Primary Care Provide r Unavailable CasperTimothy Unavailable [phone] REASON FOR VISIT screening,hx polyps Problems Problem Type SNOMED Code ICD Code Onset Dates Problem Status W/U Status Risk Notes Problem History of polyp of colon (situation) (596256594) Personal history of colonic polyps (Z86.010) Active confirmed Problem Diverticular disease of colon (303687003) Diverticulosis of large intestine without perforation or abscess without bleeding (K57.30) Active confirmed Encounters Encounter Location Date Provider Diagnosis [facility] [place] [facility] [address] [place] [address] [id number] 11/24/2023 Timothy Casper Encounter for scre ening colonoscopy Z12.11 ; Personal history of colonic polyps Z86.010 ; Diverticulosis of large intestine without perforation or abscess without bleeding K57.30 and Other hemorrhoids K64.8 Assessments Encounter Date Diagnosis (ICD Code) Assessment Notes Treatment Notes Treatment Clinical Notes Section Notes 11/24/2023 Encounter for screening colonoscopy (ICD-10 - Z12.11) 11/24/2023 Personal history of colonic polyps (ICD-10 - Z86.010) 11/24/2023 Diverticulosis of large intestine without perforation or abscess without bleeding (ICD-10 - K57.30) 11/24/2023 Other hemorrhoids (ICD-10 - K64.8) Plan Of Treatment No Information Progress Notes * MARGARET KILGORE:[birth year] (75 yo M)Acc No.[id number]:11/24/2023 COLON WITH MAC Patient: B ONCORE, SAIGE Provider: Kori Casper MD :1950 A ge:73 Y S ex:Male Date:11/24/2023 Address:[address] [place], [place] [id number] Pcp:Carlos Ly (RETIRED )MD Subjective: * Chief Complaints: * 1 . Screening,hx polyps. * Medical History: Objective: * Vitals: Assessment: * Assessment: 1. E ncounter for screening colonoscopy - Z12.11 (Primary) 2 . P ersonal history of colonic polyps - Z86.010 3 . D iverticulosis of large intestine without perforation or abscess without bleeding - K57.30 4 . O ther hemorrhoids - K64.8? Plan: * Treatment: * Procedure Codes: 4 5378 DIAGNOSTIC COLONOSCOPY * Preventive Medicine: KENISHA Screening: C olonoscopy W as interval between colonoscopies three years or more? Y es, W as last colonoscopy performed three or more years ago? Y es. * * The named appointment provid er may or may not be the originator of this progress note, and it is not deemed complete until electronically signed by the appointment provider. Sign off status: Pending * Provider: Kori Casper MD Date: 0 11/24/2023 Generated for Yojana pal/Laura/Wilfredoitting on: 07:54 AM EDT
--- OUTSIDE RECORDS SUMMARY | 2025-05-09 07:55 | XMS_ITS | Patient Health Record ---
Author Organization [facility] Address [address] [place] [address] Care Team Providers Care Anatomy Professor Name Role Phone Malachi (RETIRED) Carlos FONSECA Primary Care Provide r Timothy Christianson Unavailable [phone] Allergies Allergen (clinical drug ingredient) Drug/Non Drug Allergy documented on EMR Reaction Allergy Type Onset Date Status Penicillin Unknown Drug Allergy Active Reason For Referral No Information Medications Medication SIG (Take, Route, Frequency, Duration) Notes Start Date End Date Status Senior Multivitamin Plus Active Lisinopril 5 MG 1 tablet Orally Once a day Active Atorvastatin Calcium 10 MG 1 tablet Oral ly Once a day Active Flax Seed Oil 1000 MG as directed Orally Active Niacin 250 MG 1 tablet with food O rally Once a day for 30 day(s) Active Problems Problem Type SNOMED Code ICD Code Onset Dates Problem Status W/U Status Risk Notes Problem [id number] Encounter for screening for malignant neoplasm of colon (Z12.11) Active confirmed Problem 864244407 History of adenomatous polyp of colon (Z86.010) Active confirmed Problem History of polyp of colon (situation) (226748407) Personal history of colonic polyps (Z86.010) Active confirmed Problem Diverticular disease of colon (741083265) Diverticulosis of large intestine without perforation or abscess without bleeding (K57.30) Active confirmed Problem 619074530 Preprocedural examination (Z01.818) Active confirmed Plan Of Treatment Pending Test Test Name Order Date GI BIOPSY 09/30/2017 Future Test Test Name Order Date COLONOSCOPY 06/29/2012 COLONOSCOPY 09/09/2017 COLONOSCOPY 08/19/2023 Insurance Providers Payer Name Payer Address Payer Phone Subscriber Number Group Number Insured Name Patient Relationship to Insured Coverage Start Date Coverage End Date [facility] [address] [place] [phone] [id number] SAIGE KILGORE Self - patient is the insured Medical (General) History Medical History History ICD Code Colonoscopy 04/04/2003--no polyps Colonoscopy in 08/2012--small tubular adenomas, sigmoid diverticulosis, internal hemorrhoids HTN Hyperlipidemia Denies [place],DM,CVA,Lung disease,renal dise ase Hearing loss-hearing aids Colonoscopy 09/2017 with 2 small tubular adenomas Surgical History Surgery Date(Month/Year) Vasectomy
[2025-05-09 08:06] VITALS: BMI 24.7
--- NOTE | 2025-05-09 08:06 | A.OFFVIS_ITS ---
Vital Signs 05/09/25 08:06 Height 5 ft 8.5 in Weight 165 lb BMI 24.7 Intake Visit Reasons: New Pt- Tinea unguium Intake Note: Javier is a 75 year old male who presents today as a new patient for an evaluation of his Bilateral Tinea unguium . He mentions this has been going on for over 10 years. Patient states he has tried home remedies, specifically Jorge Alberto, and purchased OTC Nonyx however he has not tried any prescribed medications at this time. He found that his home remedies and Nonyx has not helped him with his tinea unguium. His previous Dot Etcher has recommended toenail removal. Allergies Penicillins (PENICILLINS) Allergy (Intermediate, Verified 05/09/25 08:07) HIVES Medication List - Last Reconciled 05/09/25 by Selina Walden DPM atorvastatin 10 mg PO DAILY flaxseed oil 1,000 mg PO DAILY lisinopril 5 mg PO DAILY multivitamin 1 tab PO DAILY HPI Comments Details: The patient is a 75-year-old male with a past medical history as seen below presenting with concerns regarding toenail fungus. The patient reports having toenail issues for more than 10 years, expressing concern after hearing about a case of amputation due to untreated toenail fungus. The patient has experienced a wound from cutting toenails in the past, which healed without complications. He denies any current pain or signs of infection in the affected area. The patient has a history of hypertension and hyperlipidemia, for which he is currently taking medication, including a statin. He reports mild alcohol consumption and engages in regular walking as part of his exercise routine. Patient denies any current pain to the toes at this time. He denies any other pedal concerns. He denies any current nausea, vomiting, fever, or chills. [facility] Medical History (Updated 05/09/25 @ 08:36 by Selina Walden DPM) Nail disorder Tinea unguium Nail dystrophy HTN (hypertension) Elevated cholesterol Tubular adenoma of colon Personal history of nicotine dependence Surgical History (Updated 04/26/25 @ 12:49 by Estefany Cortez PA-C) History of tonsillectomy History of colonoscopy History of vasectomy Family History (Updated 04/26/25 @ 12:50 by Estefany Cortez PA-C) Father Brain tumor Brother Lung cancer Brother Lung cancer Mother Stroke Social History (Updated 11/19/23 @ 09:22 by Sonia Moscoso RN) Housing: House Patient Tobacco Use Status: Former Tobacco user Tobacco use type: Cigarette e-Cigarette/Vaping Use: Never Used service: Yes Current occupational status: retired Review of Systems Const Details: - Neurological: Denies numbness or tingling in lower extremities - Integumentary: Reports a previous minor wound from toenail cutting, currently healed without infection. Thickened, dystrophic, and discolored toenails X10 noted. All systems reviewed & are unremarkable except as noted in HPI and below Physical Exam Vital Signs: BMI result Body Mass Index 24.7 Extrem Other: Bilateral lower extremity focused physical exam: Derm: Thickened, dystrophic, discolored toenails X10 with subungual debris noted. Mild abrasion noted to the dorsal aspect of the left hallux in the area of the nail matrix without drainage, active bleeding, or purulence noted. No interdigital maceration noted. Mild xerosis noted. No open lesions or wounds noted. No clinical signs of infection noted. No edema noted. No ecchymosis or discoloration noted. Vascular: DP/PT pulses palpable. Capillary refill time less than 3 seconds. Temperature gradient warm to warm. Pedal hair slightly diminished. Varicosities noted. Neuro: Protective sensation is grossly intact. MSK: No pain on palpation to the forefoot. Range of motion of the forefoot, hindfoot, and ankles within normal limits. No crepitus noted. No fluctuance noted. Nonantalgic gait unassisted noted. Office Procedures AMB Debridement/Avulsion Podia Details: Debrided toenails X 10 using a sterile nail Nipper with no incidents and sent nail specimens for microbiology and pathology. 20571-Ljvnprryxif of Nail 6+ Procedure code (CPT) selection complete Results Reviewed Results Reviewed: Laboratory Tests 04/10/25 12:00 AST 35 ALT 33 Assessment & Plan Assessment & Plan (1) Nail dystrophy: Code(s): L60.3 - Nail dystrophy Category: Medical (2) Tinea unguium: Code(s): B35.1 - Tinea unguium Category: Medical (3) Nail disorder: Code(s): L60.9 - Nail disorder, unspecified Category: Medical Plan Patient was informed and verbally consented to the use of an ambient scribe for clinic note documentation during this visit. I discussed with the patient the nature of onychomycosis and the treatment options available, including oral and topical antifungal medications. I explained the potential liver effects of oral antifungals and the need for regular liver function tests for continued monitoring. - Debrided toenails X 10 using a sterile nail Nipper and sent nail specimens to microbiology and pathology. - Advised patient to keep socks and shoes clean and dry to avoid spread of fungus. - Will consider topical or oral treatment when patient returns from traveling and after pathology and microbiology results are back. Patient will follow up in 1 month for further evaluation and treatment. Orders: Orders AMB Debridement/Avulsion Podiatry Today B35.1 - Tinea unguium, L60.3 - Nail dystrophy, L60.9 - Nail disorder, unspecified Fungus Cult Hair/Skin/Nail Today B35.1 - Tinea unguium, L60.3 - Nail dystrophy, L60.9 - Nail disorder, unspecified Surgical Today B35.1 - Tinea unguium, L60.3 - Nail dystrophy, L60.9 - Nail disorder, unspecified Coding Level of Care Code New Pt Level 3 (63052) Diagnoses Nail dystrophy L60.3 Tinea unguium B35.1 Nail disorder L60.9 CPT Codes Skin Debridement - CPT: 92587-Ckyjcbsenoe of Nail 6+ ([id number]) Time Spent (min) 30
== END 2025-05-09 08:34 | disposition home or self-care (01) ==
LOC: HO.HPODS 07:50
PROVIDERS: PCP Student in an Organized Health Care Education/Training Program; Visit Provider Student in an Organized Health Care Education/Training Program
DX: L60.3 Nail dystrophy (principal); B35.1 Tinea unguium; L60.9 Nail disorder, unspecified
CPT/HCPCS: 11721; 99203

== ENCOUNTER 2025-05-09 07:49 | Outpatient (REF) | payer MEDICARE, SELFPAY | END 2025-05-09 07:50 | disposition home or self-care (01) | LOC: HO.LNP 07:49 | PROVIDERS: PCP Student in an Organized Health Care Education/Training Program; Visit Provider Student in an Organized Health Care Education/Training Program | DX: L60.3 Nail dystrophy (principal); B35.1 Tinea unguium | CPT/HCPCS: 11721; 87101; 87220; 88304; 88312; 99202 ==

== ENCOUNTER 2025-06-12 09:10 | Outpatient (REF) | payer MEDICARE, SELFPAY ==
--- OUTSIDE RECORDS SUMMARY | 2025-06-12 09:55 | XMS_ITS | Patient Health Record ---
Author Organization [facility] Address [address] [place] [address] Care Team Providers Care Draw Bench Operator Helper Name Role Phone Malachi (RETIRED) Carlos FONSECA Primary Care Provide r Timothy Christianson Unavailable [phone] Allergies Allergen (clinical drug ingredient) Drug/Non Drug [...] tablet with food O rally Once a day; Duration: 30 day(s) Active Problems Problem Type SNOMED Code ICD Code Onset Dates Problem Status W/U Status Risk Notes Problem Screening for malignant neoplasm of colon (475171093) Encounter for screening for malignant neoplasm of colon (Z12.11) Active confirmed Problem History of adenomatous polyp of colon (443949726) History of adenomatous polyp of colon (Z86.010) Active confirmed Problem History of polyp of colon (situation) (061007697) Personal history of colonic polyps (Z86.010) Active confirmed Problem Diverticular disease of colon (788280975) Diverticulosis of large intestine without perforation or abscess without bleeding (K57.30) Active confirmed Problem Preprocedural examination (423418182340167) Preprocedural examination (Z01.818) Active confirmed Plan Of Treatment Pending Test Test Name Order Date GI BIOPSY 09/30/2017 Future Test Test Name Order Date COLONOSCOPY 06/29/2012 COLONOSCOPY 09/09/2017 COLONOSCOPY 08/19/2023 Insurance Providers Payer Name Payer Address Payer Phone Subscriber Number Group Number Insured Name Patient Relationship to Insured Coverage Start Date Coverage End Date [facility] [address] [employer] [facility] [place] [address] [id number] SAIGE KILGORE Self - patient is the insured Medical (General) History Medical History History ICD Code Colonoscopy 04/04/2003--no polyps Colonoscopy in 08/2012--small tubular adenomas, sigmoid diverticulosis, internal hemorrhoids HTN Hyperlipidemia Denies [place],DM,CVA,Lung disease,renal dise ase Hearing loss-hearing aids Colonoscopy 09/2017 with 2 small tubular adenomas Surgical History Surgery Date(Month/Year) Vasectomy
[2025-06-12 11:36] LABS: PSA,Total (Free>4and<10) 2.28 ng/mL (0.00-4.00)
== END 2025-06-12 09:11 | disposition home or self-care (01) ==
LOC: HO.10HDL 09:10
PROVIDERS: Visit Provider Student in an Organized Health Care Education/Training Program
DX: C61 Malignant neoplasm of prostate (principal); Z12.5 Encounter for screening for malignant neoplasm of prostate
CPT/HCPCS: 36415; 84153

== ENCOUNTER 2025-06-13 08:45 | Outpatient (AMB) | payer MEDICARE, SELFPAY ==
--- NOTE | 2025-06-13 08:59 | A.OFFVIS_ITS ---
Vital Signs 06/13/25 09:00 Height 5 ft 8.5 in Weight 165 lb BMI 24.7 Intake Visit Reasons: fu fungal nails Intake Note: Javier is a 75 year old male who presents today for a follow up on his tinea unguium. During his last visit his toenails was debrided and samples where taken for pathology and culture. Results are in patients chart. Patient has no concerns or questions at this time. Allergies Penicillins (PENICILLINS) Allergy (Intermediate, Verified 06/13/25 09:01) HIVES HPI Comments Details: The patient is a 75-year-old male presenting for a follow up of onychomycosis. The condition was confirmed through pathology and microbiology. The patient has been experiencing nail thickening and discoloration. He denies any drainage, purulence, or bleeding from the toes. Additionally, the patient had concerns regarding elevated PSA levels, which he states were previously noted to be 4.0 but have since decreased to 2.2. This decrease was confirmed through recent lab work, alleviating initial concerns about prostate cancer. He denies any recent pedal injuries. He denies any other pedal concerns. Patient opts for oral antifungal medication at this time. [facility] Medical History (Updated 05/09/25 @ 08:36 by Selina Walden DPM) Nail disorder Tinea unguium Nail dystrophy HTN (hypertension) Elevated cholesterol Tubular adenoma of colon Personal history of nicotine dependence Surgical History (Updated 04/26/25 @ 12:49 by Estefany Cortez PA-C) History of tonsillectomy History of colonoscopy History of vasectomy Family History (Updated 04/26/25 @ 12:50 by Estefany Cortez PA-C) Father Brain tumor Brother Lung cancer Brother Lung cancer Mother Stroke Social History (Updated 11/19/23 @ 09:22 by Sonia Moscoso RN) Housing: House Patient Tobacco Use Status: Former Tobacco user Tobacco use type: Cigarette e-Cigarette/Vaping Use: Never Used service: Yes Current occupational status: retired Review of Systems Const Details: - Integumentary: Reports Thickened, dystrophic, and discolored toenails X10 noted. All systems reviewed & are unremarkable except as noted in HPI and below Physical Exam Vital Signs: BMI result Body Mass Index 24.7 Extrem Other: Bilateral lower extremity focused physical exam: Derm: Thickened, dystrophic, discolored toenails X10 with subungual debris noted. Healed abrasion noted to the dorsal aspect of the left hallux in the area of the nail matrix without drainage, active bleeding, or purulence noted. No interdigital maceration noted. No xerosis noted. No open lesions or wounds noted. No clinical signs of infection noted. No edema noted. No ecchymosis or discoloration noted. Vascular: DP/PT pulses palpable. Capillary refill time less than 3 seconds. Temperature gradient warm to warm. Pedal hair slightly diminished. Varicosities noted. Neuro: Protective sensation is grossly intact. MSK: No pain on palpation to the forefoot. Range of motion of the forefoot, hindfoot, and ankles within normal limits. No crepitus noted. No fluctuance noted. Nonantalgic gait unassisted noted. Results Reviewed Results Reviewed: Laboratory Tests 04/10/25 12:00 WBC 6.3 AST 35 ALT 33 B/L toenails pathology results (05/10/25): Positive for Onychomycosis. B/L toenails microbiology results (05/09/25): Tricophyton species. Assessment & Plan Assessment & Plan (1) Nail dystrophy: Code(s): L60.3 - Nail dystrophy Category: Medical (2) Tinea unguium: Code(s): B35.1 - Tinea unguium Category: Medical (3) Nail disorder: Code(s): L60.9 - Nail disorder, unspecified Category: Medical Plan Patient was informed and verbally consented to the use of an ambient scribe for clinic note documentation during this visit. I discussed with the patient the diagnosis of onychomycosis and the treatment plan involving both oral and topical antifungal medications. We reviewed the importance of monitoring liver function tests during treatment via oral medication and the expected duration of therapy. - Prescribed Terbinafine to be taken daily. - Ordered new lab work to monitor LFTs during treatment, to be performed prior to next visit. - Advised patient to keep socks and shoes clean and dry. - Advised patient to avoid barefoot walking and to wear supportive shoe gear. RTC in 1 month. Orders: Orders Comprehensive Met. Panel Today B35.1 - Tinea unguium, L60.3 - Nail dystrophy, L60.9 - Nail disorder, unspecified Complete Blood Count Auto Diff Today B35.1 - Tinea unguium, L60.3 - Nail dystrophy, L60.9 - Nail disorder, unspecified Medications: New terbinafine HCl 250 mg PO DAILY 30 tabs 0RF B35.1 - Tinea unguium, L60.3 - Nail dystrophy, L60.9 - Nail disorder, unspecified Coding Level of Care Code Est Pt Level 4 (76075) Diagnoses Nail dystrophy L60.3 Tinea unguium B35.1 Nail disorder L60.9 Time Spent (min) 37
[2025-06-13 09:00] VITALS: BMI 24.7
--- OUTSIDE RECORDS SUMMARY | 2025-06-13 09:12 | XMS_ITS | Patient Health Record ---
Author Organization [facility] Address [address] [place] [address] Care Team Providers Care Director Sterile Processing Name Role Phone Malachi (RETIRED) Carlos FONSECA Primary Care Provide r Timothy Christianson Unavailable [phone] Allergies Allergen (clinical drug ingredient) Drug/Non Drug [...] Problem Screening for malignant neoplasm of colon (246268485) Encounter for screening for malignant neoplasm of colon (Z12.11) Active confirmed Problem History of adenomatous polyp of colon (383391894) History of adenomatous polyp of colon (Z86.010) Active confirmed Problem History of polyp of colon (situation) (913109015) Personal history of colonic polyps (Z86.010) Active confirmed Problem Diverticular disease of colon (570262474) Diverticulosis of large intestine without perforation or abscess without bleeding (K57.30) Active confirmed Problem Preprocedural examination (795803055869457) Preprocedural examination (Z01.818) Active confirmed Plan Of Treatment Pending Test Test Name Order Date GI BIOPSY 09/30/2017 Future Test Test Name Order Date COLONOSCOPY 06/29/2012 COLONOSCOPY 09/09/2017 COLONOSCOPY 08/19/2023 Insurance Providers Payer Name Payer Address Payer Phone Subscriber Number Group Number Insured Name Patient Relationship to Insured Coverage Start Date Coverage End Date [facility] [address] [place] [phone] [id number] SAIGE KILGORE Self - patient is the insured Medical (General) History Medical History History ICD Code Colonoscopy 04/04/2003--no polyps Colonoscopy in 08/2012--small tubular adenomas, sigmoid diverticulosis, internal hemorrhoids HTN Hyperlipidemia Denies MT,DM,CVA,Lung disease,renal dise ase Hearing loss-hearing aids Colonoscopy 09/2017 with 2 small tubular adenomas Surgical History Surgery Date(Month/Year) Vasectomy
== END 2025-06-13 09:19 | disposition home or self-care (01) ==
LOC: HO.HPODS 08:46
PROVIDERS: PCP Student in an Organized Health Care Education/Training Program; Visit Provider Student in an Organized Health Care Education/Training Program
DX: L60.3 Nail dystrophy (principal); B35.1 Tinea unguium; L60.9 Nail disorder, unspecified
CPT/HCPCS: 99214

== ENCOUNTER → 2025-06-13 08:45 | Outpatient (BNVA) | payer MEDICARE, SELFPAY | PROVIDERS: PCP Student in an Organized Health Care Education/Training Program; Visit Provider Student in an Organized Health Care Education/Training Program | DX: L60.3 Nail dystrophy (principal); B35.1 Tinea unguium; L60.9 Nail disorder, unspecified | CPT/HCPCS: 99212 ==

== ENCOUNTER 2025-07-11 07:48 | Outpatient (AMB) | payer MEDICARE, SELFPAY ==
--- NOTE | 2025-07-11 07:50 | A.OFFPC_ITS ---
Vital Signs 07/11/25 07:58 Height 5 ft 8 in Weight 169 lb BMI 25.7 BP 122/100 H Blood Pressure Location Lt brachial Position Sitting Respiration 18 Pulse 64 Pulse Source Pulse Oximeter Temp 97.4 F Temp Source Temporal Artery Scan Pulse Oximetry (%) 98 Oxygen Delivery Method Room Air Intake Visit Reasons: 3 month f/u Instrumentation Specialist Required: No Accompanied by: Self / Same As Patient Allergies Penicillins (PENICILLINS) Allergy (Intermediate, Verified 07/11/25 07:50) HIVES Medication List - Last Reconciled 07/11/25 by Tyler Morejon MD atorvastatin 10 mg PO DAILY 60 days flaxseed oil 1,000 mg PO DAILY lisinopril 5 mg PO DAILY 90 days multivitamin 1 tab PO DAILY terbinafine HCl 250 mg PO DAILY Tobacco use date assessed: 04/10/25 Fall risk assessment: No Falls in past year Last assessed Fall Risk: 07/11/25 Dental Screening Dental Screen Date: 07/11/25 HPI HPI Comments History of Present Illness Details History of Present Illness The patient is a 75 year old individual presenting for a follow-up visit. The patient is currently taking terbinafine for onychomycosis, which was diagnosed via pathology after samples were taken from all 10 toenails. Since starting the medication, the patient has developed a raised rash on the hand and uses cortisone cream on it. The patient's last blood work in April was normal, including blood counts and electrolytes. An elevated PSA of 4.23 was noted at that time, but it normalized on a repeat test. Vitamin D and TSH levels were also normal. The patient manages hypertension with lisinopril 5 mg and hyperlipidemia with atorvastatin 10 mg. The patient had a sore throat last week that resolved after taking Mucinex. The patient reports significant emotional distress as the patient's brother has stage 4 lung cancer and is in hospice. The patient is scheduled for a lung cancer screening. Medical History: - Onychomycosis - Hypertension - Hyperlipidemia - History of elevated prostate-specific antigen, resolved - Recent pharyngitis, resolved Surgical History: - Toenail clipping for biopsy Medications: - Terbinafine 250 mg once daily for onyc homycosis - Lisinopril 5 mg for hypertension - Atorvastatin 10 mg for hyperlipidemia - Topical cortisone cream as needed for rash - Mucinex as needed for recent pharyngit is Family History: - Brother has stage 4 lung cancer and is in hospice. Diagnostic Results: - Labs (from April): Normal blood co unts and electrolytes. - Labs (from April): PSA was initial ly 4.23 but normalized on repeat testing. - Labs (from April): Vitamin D level was 43. - Labs (from April): TSH level was n ormal. - Tests and Diagnostics: Toenail patholo gy confirmed a fungal infection. Social History - The patient reports significant emotio nal distress due to the patient's brother's terminal illness with stage 4 lung cancer. - The patient maintains an active lifest yle, including walking. [facility] Medical History (Updated 07/11/25 @ 08:16 by Tyler Morejon MD) Onychomycosis Nail disorder Tinea unguium Nail dystrophy HTN (hypertension) Elevated cholesterol Tubular adenoma of colon Personal history of nicotine dependence Surgical History (Updated 04/26/25 @ 12:49 by Estefany Cortez PA-C) History of tonsillectomy History of colonoscopy History of vasectomy Family History (Updated 04/26/25 @ 12:50 by Estefany Cortez PA-C) Father Brain tumor Brother Lung cancer Brother Lung cancer Mother Stroke Social History (Updated 11/19/23 @ 09:22 by Sonia Moscoso RN) Housing: House Patient Tobacco Use Status: Former Tobacco user Tobacco use type: Cigarette e-Cigarette/Vaping Use: Never Used service: Yes Current occupational status: retired Questionnaire Thrive Questionnaire Date Thrive assessed: 04/10/25 AUDIT C Alcohol Use Questionnaire (AUDIT-C) 1. How often do you have a drink containing alcohol?: 2-3 times a week 2. How many drinks containing alcohol do you have on a typical day when you are drinking?: 1 or 2 3. How often do you have six or more drinks on one occasion?: Never Total Score: 3 LAKEISHA-7 AMB Questionnaire LAKEISHA-7 Date LAKEISHA - 7 assessed: 04/10/25 Source: Developed by Drs. Timothy Cuevas, Maria Ines Barrera, Chepe Evans and colleagues, with an educational carmelina from [employer]. Review of Systems Narrative Review of Systems - Constitutional: Denies nausea and vomiting. - Integumentary: Reports a new, raised rash on the hand. - Respiratory: Denies shortness of breath. Reports a recent sore throat which has resolved. - Cardiovascular: Denies chest pain. - Neurological: Denies headaches or vision changes. - Extremities: Denies swelling in the legs. All systems reviewed & are unremarkable except as reviewed in HPI and above Physical exam (Primary Care) Vital Signs: Last Vital Signs Temp 97.4 F 07/11/25 07:58 Pulse 64 07/11/25 07:58 Resp 18 07/11/25 07:58 BP 122/100 H 07/11/25 07:58 Pulse Ox 98 07/11/25 07:58 Oxygen Delivery Method Room Air 07/11/25 07:58 Care Plan Goal for BP management: Wihtin Goal Repeat at 130/90 BMI result Body Mass Index 25.7 Tobacco/Smoking Status: Tobacco use Status Tobacco use date assessed 04/10/25 07/11/25 07:53 Patient Tobacco Use Status Former Tobacco user 07/11/25 07:53 Tobacco use type Cigarette 07/11/25 07:53 e-Cigarette/Vaping Use Never Used 07/11/25 07:53 Thrive Assessment: Date of Thrive Assessment Date Thrive assessed 04/10/25 07/11/25 07:53 Narrative Physical Exam General: +Alert and oriented, Well nourished, No acute distress. Eye: Pupils are equal, round and reactive to light, Intact accommodation, Extraocular movements are intact, Normal conjunctiva, Vision unchanged. HENT: Normocephalic, Atraumatic, Tympanic membranes are clear, Normal hearing, Oral mucosa is moist, No pharyngeal erythema, Ear canals patent. Respiratory: Lungs CTA bilaterally, No wheeze, Respirations are non-labored. Cardiovascular: Regular rate, Regular rhythm, S1 auscultated, S2 auscultated, No murmur, Good pulses equal in all extremities, Normal peripheral perfusion, No edema. Gastrointestinal: Soft, Non-tender, Non-distended, Normal bowel sounds, No organomegaly. Musculoskeletal: Normal range of motion, Normal strength, No tenderness, No swelling, No deformity, Normal gait. Integumentary: Warm, Dry, [place], Intact, Rash noted on hand, possibly drug- related. Neurologic: Alert, Oriented, Normal sensory, Normal motor function, No focal defects, Cranial Nerves II-XII are grossly intact, Normal deep tendon reflexes. Psychiatric: Cooperative, Appropriate mood & affect, Normal judgment, Emotional distress noted due to family circumstances. Coding Level of Care Code Est Pt Level 4 (66318) Complex visit Add On G2211 Diagnoses Onychomycosis B35.1 Primary hypertension I10 Hypertension type: primary hypertension Elevated cholesterol E78.00 Assessment & Plan Assessment & Plan (1) Onychomycosis: Comment: - The patient is taking terbinafine as prescribed by another provider and has developed a rash, which is concerning for a drug reaction. - My concerns about this potential side effect will be noted for the other provider. - The patient understands the need for upcoming blood work to monitor for liver side effects. - The patient was educated that nail infections are difficult to treat due to poor blood supply. Code(s): B35.1 - Tinea unguium Category: Medical (2) HTN (hypertension): Comment: - Blood pressure is well-controlled at 130/90 mmHg. - The patient will continue lisinopril 5 mg daily. Code(s): I10 - Essential (primary) hypertension Category: Medical Qualifiers: Hypertension type: primary hypertension Qualified Code(s): I10 - Essential (primary) hypertension (3) Elevated cholesterol: Comment: - Managed with atorvastatin 10 mg. - The patient will continue the current medication. Code(s): E78.00 - Pure hypercholesterolemia, unspecified Category: Medical Plan: Health Maintenance: - Lung cancer screening: The patient is scheduled for a screening CT scan. - Immunizations: The patient has received the annual flu shot and has had five doses of the COVID vaccine. - Lifestyle: Advised to continue current activities, including walking, as they are beneficial. Patient was informed and verbally consented to the use of an ambient scribe for clinic note documentation during this visit. Plan I discussed with the patient the new rash on the hand, noting that it is concerning for a drug reaction to terbinafine. I informed the patient I would document this rash for the prescribing provider's review. We reviewed the risks of terbinafine, including liver side effects, and the rationale for the planned monitoring blood work. I explained that nail infections are challenging to treat because of limited blood supply to the nails. We reviewed that the patient's recent lab work from April was reassuring, and a previously elevated PSA level had since normalized. I confirmed that blood pressure is well-controlled. I encouraged the patient to continue with current lifestyle habits as they are working well and advised follow-up in four months or sooner if anything arises from the upcoming lung scan. Patient Instructions: - Continue taking your current medications for blood pressure and cholesterol as prescribed. - Make sure to discuss the new rash on your hand with your other doctor at your appointment tomorrow, as it could be a side effect of the terbinafine medication. - Proceed with your scheduled lung cancer screening CT scan. - It is important to complete the blood work ordered by your other doctor to check your liver, as discussed. - Continue to stay active; what you are currently doing is working well. - Please return for a follow-up visit in four months.
[2025-07-11 07:58] VITALS: BP 122/100; PULSE 64; RESP 18; TEMP 36.3; O2SAT 98; BMI 25.7
== END 2025-07-11 08:14 | disposition home or self-care (01) ==
LOC: HO.HMCHD 07:48
PROVIDERS: PCP Student in an Organized Health Care Education/Training Program; Visit Provider Student in an Organized Health Care Education/Training Program
DX: B35.1 Tinea unguium (principal); I10 Essential (primary) hypertension; E78.00 Pure hypercholesterolemia, unspecified

== ENCOUNTER 2025-07-11 08:15 | Outpatient (REF) | payer MEDICARE, SELFPAY ==
[2025-07-11 10:25] LABS: MANUAL DIFF FLAG NO
[2025-07-11 10:33] LABS: Hematocrit 50.0 % (42.0-52.0); Hemoglobin 17.2 g/dl (14.0-18.0); Imm Gran Abs Auto 0.02 X10*3/uL (0.00-0.03); Imm Gran Pct Auto 0.3 % (0.0-0.4); Lymphocytes Absolute Auto 1.3 X10*3/uL (1.2-4.9); Mean Corpuscular HGB Conc 34.4 g/dl (31.0-36.0); Mean Corpuscular Hemoglobin 31.4 pg (27.0-33.0); Mean Corpuscular Volume 91.4 fL (80.0-98.0); NRBC Abs Auto 0.000 X10*3/uL (0.0-0.012); NRBC Pct Auto 0.0 /100WBC (0.0-0.2); Platelet Count 202 X10*3/uL (160-400); Red Blood Count 5.47 X10*6/uL (4.60-5.80); White Blood Count 6.0 X10*3/uL (4.8-10.8)
[2025-07-11 10:50] LABS: Alanine Aminotransferase 28 U/L (0-40); Albumin Level 4.6 g/dL (3.5-5.0); Alkaline Phosphatase 75 U/L (39-117); Anion Gap 13 (12-20); Aspartate Amino Transferase 34 U/L (5-37); Blood Urea Nitrogen 22 mg/dL (9-16); Calcium 9.4 mg/dL (8.4-10.2); Carbon Dioxide 26 mmol/L (22-29); Chloride 104 mmol/L (96-108); Estimated Glomerular Filt Rate > 60; Potassium 4.1 mmol/L (3.3-5.1); Sodium 139 mmol/L (135-145); Total Protein 7.1 g/dL (6.5-8.0)
== END 2025-07-11 08:16 | disposition home or self-care (01) ==
LOC: HO.10HDL 08:15
PROVIDERS: Visit Provider Student in an Organized Health Care Education/Training Program
DX: L60.3 Nail dystrophy (principal); B35.1 Tinea unguium; L60.9 Nail disorder, unspecified; I10 Essential (primary) hypertension; E78.00 Pure hypercholesterolemia, unspecified
CPT/HCPCS: 36415; 80053; 85025; 99212

== ENCOUNTER 2025-07-12 08:27 | Outpatient (AMB) | payer MEDICARE, SELFPAY ==
--- NOTE | 2025-07-12 08:35 | MHC.OFFVIS ---
Vital Signs 07/12/25 08:57 Height 5 ft 8 in Weight 169 lb BMI 25.7 Intake Visit Reasons: f/u labs - fungal nails Intake Note: Javier is a 75 year old male who presents today for a follow upon his fungal nails. At his last visit patient was prescribed terbinafine and labs were ordered. Bloodwork results are all set in patients chart. He was advised to keep socks and shoes clean and dry, and to avoid barefoot walking, and to wear supportive shoe gear. Patient reports he feels exhausted all the time and now he has a rash on his left arm since he started taking the terbinafine However he believes his fungus has improved slightly since his last visit. Allergies Penicillins (PENICILLINS) Allergy (Intermediate, Verified 07/12/25 08:57) HIVES HPI Comments Details: The patient is a 75 year old male presenting for follow-up on onychomycosis treatment with concerns about medication side effects. Patient states he has noted some improvement in the nails. He reports that approximately one week after starting oral terbinafine, he developed a rash on his left arm, significant fatigue, and hypersomnia, with naps extending to two hours compared to his usual 10 minutes. He has one pill remaining of his current prescription. The patient also reports feeling under the weather recently and a history of swollen glands in his throat for about a week, which have since resolved after taking Mucinex. He denies any fever. Recent blood tests showed normal liver function levels. He has a lung and thorax scan scheduled for tomorrow due to his family history. He denies any new pedal injuries. He denies any other pedal concerns. [facility] Medical History (Updated 07/13/25 @ 09:28 by Estefany Cortez PA-C) HTN (hypertension) Elevated cholesterol Tubular adenoma of colon Personal history of nicotine dependence Onychomycosis Nail disorder Nail dystrophy Tinea unguium Surgical History (Updated 07/13/25 @ 08:27 by Estefany Cortez PA-C) History of toe surgery History of tonsillectomy History of colonoscopy History of vasectomy Family History (Updated 04/26/25 @ 12:50 by Estefany Cortez PA-C) Father Brain tumor Brother Lung cancer Brother Lung cancer Mother Stroke Social History (Updated 07/13/25 @ 09:49 by Estefany Cortez PA-C) Housing: House Alcohol intake: current Alcohol intake frequency: a few times a month Patient Tobacco Use Status: Former Tobacco user Tobacco use type: Cigarette Years Smoked: (onset 18yo, 1/2ppd x 45yrs, 22pyh - quit 2012) e-Cigarette/Vaping Use: Never Used service: Yes Current occupational status: retired Review of Systems Const Details: - Integumentary: Reports Thickened, dystrophic, and discolored toenails X10 noted, improving since last visit. - Constitutional: Reports significant fatigue and hypersomnia. - Integumentary: Reports a new rash on the left arm that started about a week ago. - Neck: Reports swollen glands in his throat for about a week, which have since resolved. All systems reviewed & are unremarkable except as noted in HPI and below Physical Exam Vital Signs: BMI result Body Mass Index 25.7 Extrem Other: Bilateral lower extremity focused physical exam: Derm: Thickened, dystrophic, discolored toenails X10 with subungual debris noted, improving from last visit. Healed abrasion noted to the dorsal aspect of the left hallux in the area of the nail matrix without drainage, active bleeding, or purulence noted. No interdigital maceration noted. No xerosis noted. No open lesions or wounds noted. No clinical signs of infection noted. No edema noted. No ecchymosis or discoloration noted. Vascular: DP/PT pulses palpable. Capillary refill time less than 3 seconds. Temperature gradient warm to warm. Pedal hair slightly diminished. Varicosities noted. Neuro: Protective sensation is grossly intact. MSK: No pain on palpation to the forefoot. Range of motion of the forefoot, hindfoot, and ankles within normal limits. No crepitus noted. No fluctuance noted. Nonantalgic gait unassisted noted. Results Reviewed Results Reviewed: Laboratory Tests 07/11/25 08:22 WBC 6.0 Random Glucose 87 AST 34 ALT 28 B/L toenails pathology results (05/10/25): Positive for Onychomycosis. B/L toenails microbiology results (05/09/25): Tricophyton species. Assessment & Plan Assessment & Plan (1) Nail dystrophy: Code(s): L60.3 - Nail dystrophy Category: Medical (2) Tinea unguium: Code(s): B35.1 - Tinea unguium Category: Medical (3) Nail disorder: Code(s): L60.9 - Nail disorder, unspecified Category: Medical Plan Patient was informed and verbally consented to the use of an ambient scribe for clinic note documentation during this visit. I discussed the patient's concerns regarding the side effects he experienced, including a rash and fatigue, which began after starting oral terbinafine. I reviewed his recent bloodwork, reassuring him that his liver function is normal, which is the primary concern with terbinafine. We discussed the elevated eosinophil count and BUN, noting that his normal white blood cell count makes an active infection less likely. We mutually agreed to stop the oral medication and transition to a topical treatment, Ciclopirox, to see if his adverse symptoms resolve while still addressing the onychomycosis. I explained that the topical medication is not absorbed systemically and will not interfere with his other health conditions or medications. I provided instructions for daily application and nail preparation to improve efficacy. We will reassess his condition in a follow-up visit scheduled for two months from now. - The patient will discontinue oral terbinafine after taking his last remaining pill today. - Prescribed ciclopirox to be applied daily, while filing the toenails in between applications. - He will proceed with his scheduled lung and thorax scan tomorrow. - Advised patient to keep socks and shoes clean and dry. - Advised patient to avoid barefoot walking and to wear supportive shoe gear. RTC in 2 months. Medications: New ciclopirox 8% 1 appl topical BEDTIME 6.6 mL 1RF 4 weeks B35.1 - Tinea unguium, L60.3 - Nail dystrophy, L60.9 - Nail disorder, unspecified Discontinued terbinafine HCl Discontinued Reason: Patient no longer taking 250 mg PO DAILY 30 tabs 0RF B35.1 - Tinea unguium, L60.3 - Nail dystrophy, L60.9 - Nail disorder, unspecified Coding Level of Care Code Est Pt Level 3 (10239) Diagnoses Nail dystrophy L60.3 Tinea unguium B35.1 Nail disorder L60.9 Time Spent (min) 20
[2025-07-12 08:57] VITALS: BMI 25.7
--- OUTSIDE RECORDS SUMMARY | 2025-07-12 09:05 | XMS_ITS | Patient Health Record ---
Author Organization [facility] Address [address] [place] [address] Care Team Providers Care Priest Name Role Phone Malachi (RETIRED) Carlos FONSECA Primary Care Provide r Timothy Christianson Unavailable [phone] Allergies Allergen (clinical drug ingredient) Drug/Non Drug Allergy documented on EMR Reaction Allergy Type Onset Date Status Penicillin Unknown Drug Allergy Active Reason For Referral No Information Medications Medication SIG (Take, Route, Frequency, Duration) Notes Start Date End Date Status Senior Multivitamin Plus Active Lisinopril 5 MG Tablet 1 tablet Orally O nce a day Active Atorvastatin Calcium 10 MG Tablet 1 tablet Orally Once a day Active Flax Seed Oil 1000 MG Capsule as directed Orally Active Niacin 250 MG Tablet 1 tablet with food Orally Once a day; Duration: 30 day(s) Active Social History Social History Additional Details Category Social Info Options Details Miscellaneous: Marital status: 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64 Section Notes: Nonsmoker > 10 yrs; occasion al alcohol Nonsmoker > 10 yrs; occasion al alcohol Nonsmoker > 10 yrs; occasion al alcohol Problems Problem Type SNOMED Code ICD Code Onset Dates Problem Status W/U Status Risk Notes Problem Screening for malignant neoplasm of colon (848273417) Encounter for screening for malignant neoplasm of colon (Z12.11) Active confirmed Problem History of adenomatous polyp of colon (032546778) History of adenomatous polyp of colon (Z86.010) Active confirmed Problem History of polyp of colon (situation) (370819583) Personal history of colonic polyps (Z86.010) Active confirmed Problem Diverticular disease of colon (702847112) Diverticulosis of large intestine without perforation or abscess without bleeding (K57.30) Active confirmed Problem Preprocedural examination (183727910650321) Preprocedural examination (Z01.818) Active confirmed Plan Of Treatment Pending Test Test Name Order Date GI BIOPSY 09/30/2017 Future Test Test Name Order Date COLONOSCOPY 06/29/2012 COLONOSCOPY 09/09/2017 COLONOSCOPY 08/19/2023 Insurance Providers Payer Name Payer Address Payer Phone Subscriber Number Group Number Insured Name Patient Relationship to Insured Coverage Start Date Coverage End Date [facility] [address] [place] [place] [phone] [id number] SAIGE KILGORE Self - patient is the insured Medical (General) History Medical History History ICD Code Colonoscopy 04/04/2003--no polyps Colonoscopy in 08/2012--small tubular adenomas, sigmoid diverticulosis, internal hemorrhoids HTN Hyperlipidemia Denies MD,DM,CVA,Lung disease,renal dise ase Hearing loss-hearing aids Colonoscopy 09/2017 with 2 small tubular adenomas Surgical History Surgery Date(Month/Year) Vasectomy
== END 2025-07-12 08:48 | disposition home or self-care (01) ==
LOC: HO.HPODS 08:28
PROVIDERS: PCP Student in an Organized Health Care Education/Training Program; Visit Provider Student in an Organized Health Care Education/Training Program
DX: L60.3 Nail dystrophy (principal); B35.1 Tinea unguium; L60.9 Nail disorder, unspecified
CPT/HCPCS: 99213

== ENCOUNTER → 2025-07-12 08:27 | Outpatient (BNVA) | payer MEDICARE, SELFPAY | PROVIDERS: PCP Student in an Organized Health Care Education/Training Program; Visit Provider Student in an Organized Health Care Education/Training Program | DX: L60.3 Nail dystrophy (principal); B35.1 Tinea unguium; L60.9 Nail disorder, unspecified | CPT/HCPCS: 99212 ==

== ENCOUNTER 2025-07-13 09:17 | Outpatient (AMB) | payer MEDICARE, SELFPAY ==
--- NOTE | 2025-07-13 08:19 | MHC.OFFVIS ---
Intake Visit Reasons: Former Smoker Allergies Penicillins (PENICILLINS) Allergy (Intermediate, Verified 07/12/25 08:57) HIVES HPI HPI Former Smoker: Details: Initial visit for this 75yo former smoker with a 22PYH. Patient started smoking at age 18 for 45 years at 1/2ppd. He quit 12 years ago in 2012. . Denies marijuana use. Denies second hand smoke exposure. Denies exposure to chemicals or substances like asbestos. . Positive family history of lung cancer. 2 Brothers. - One 13yrs ago, other currently stage 4 on hospice (dx 20yrs s/p quiting). Denies personal history of cancers. Denies chest CT in last year. . Notes travel outside the [place] in last 15yrs to [place] and [place]. Denies recent respiratory illness or recent hospitalization for respiratory issues. Denies testing positive for COVID. Admits receiving COVID Vaccine. x5. . Denies fever, chills, new/worsening cough, hemoptysis, hoarseness or dysphagia. Denies significant chest pain, significant dyspnea or unintentional weight loss. Patient Lung Cancer Screening Questionnaire reviewed with patient by provider. . Shared Decision Making Completed. Patient meets criteria. Discussed in detail with patient, the risk vs benefit of LDCT screening. Patient consents to proceed with scan. Discussed and encouraged continued smoking cessation. [facility] Medical History (Updated 07/13/25 @ 09:28 by Estefany Cortez PA-C) HTN (hypertension) Elevated cholesterol Tubular adenoma of colon Personal history of nicotine dependence Onychomycosis Nail disorder Nail dystrophy Tinea unguium Surgical History (Updated 07/13/25 @ 08:27 by Estefany Cortez PA-C) History of toe surgery History of tonsillectomy History of colonoscopy History of vasectomy Family History (Updated 04/26/25 @ 12:50 by Estefany Cortez PA-C) Father Brain tumor Brother Lung cancer Brother Lung cancer Mother Stroke Social History (Updated 07/13/25 @ 09:49 by Estefany Cortez PA-C) Housing: House Alcohol intake: current Alcohol intake frequency: a few times a month Patient Tobacco Use Status: Former Tobacco user Tobacco use type: Cigarette Years Smoked: (onset 18yo, 1/2ppd x 45yrs, 22pyh - quit 2012) e-Cigarette/Vaping Use: Never Used service: Yes Current occupational status: retired Assessment & Plan Assessment & Plan (1) Personal history of nicotine dependence: Comment: (onset 18yo, 1/2ppd x 45yrs, 22pyh - quit 2012 +fam hx lung ca) Code(s): Z87.891 - Personal history of nicotine dependence Category: Medical Plan: - SDM visit completed today in office. - Patient meets criteria for LDCT for lung cancer screening purposes and is asymptomatic. - Smoking cessation counseling offered. Patients can always call [phone]. - Will arrange for a LDCT scan of the chest for screening purposes at [facility]. - Risks, benefits, and alternatives were discussed in detail and the patient agrees to proceed. - Risks discussed include but are not limited to: radiation exposure, anxiety during testing and while awaiting results, false negatives, false positives and possibility of additional intervention such as further imaging or surgical procedures for benign disease. - Benefits are obviously detection of lung cancer at an early stage which can lead to improved outcomes. - Discussed the importance of screening program compliance with adherence to yearly LDCT scan as scheduled - or sooner interval scans for personalized screening regimen. - Discussed follow up plan. Our office will send a letter discussing results and if needed set up phone call and office visit based on CT findings. - Patient educated on results categorization and the management decisions for suspicious findings potentially found on the screening LDCT scan. Any patient with a Lung RADS score of 3 or 4 will be reviewed by a multidisciplinary team at [facility] to form a plan of action in regards to scan findings. - If further work up is warranted for a suspicious lung finding this will be followed by the Lung Cancer Screening program in conjunction with the Thoracic Surgery Department at [facility]. - A copy of the office note and LDCT will be sent to the patient's PCP - as well as documentation on any associated further plans of care. - Incidental findings on LDCT are the PCP's responsibility. These findings are indicated with an S finding on the LDCT Assessment. A note discussing the findings will be sent to the PCP who is then responsible for further management. - All questions answered.? Plan OF NOTE FOR PCP: The USPTF recommends all men age 65-75 who have ever smoked have a one-time abdominal ultrasound to screen for AAA. Recommend if not done prior. Coding Level of Care Code Lung Cancer Screening G0296 Diagnoses Personal history of nicotine dependence Z87.896
--- OUTSIDE RECORDS SUMMARY | 2025-07-13 10:01 | XMS_ITS | Patient Health Record ---
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64 Section Notes: Nonsmoker > 10 yrs; occasion al alcohol Nonsmoker > 10 yrs; occasion al alcohol Nonsmoker > 10 yrs; occasion al alcohol Problems Problem Type SNOMED Code ICD Code Onset Dates Problem Status W/U Status Risk Notes Problem Screening for malignant neoplasm of colon (871058029) Encounter for screening for malignant neoplasm of colon (Z12.11) Active confirmed Problem History of adenomatous polyp of colon (546813165) History of adenomatous polyp of colon (Z86.010) Active confirmed Problem History of polyp of colon (situation) (806889366) Personal history of colonic polyps (Z86.010) Active confirmed Problem Diverticular disease of colon (706731626) Diverticulosis of large intestine without perforation or abscess without bleeding (K57.30) Active confirmed Problem Preprocedural examination (414664375324069) Preprocedural examination (Z01.818) Active confirmed Plan Of Treatment Pending Test Test Name Order Date GI BIOPSY 09/30/2017 Future Test Test Name Order Date COLONOSCOPY 06/29/2012 COLONOSCOPY 09/09/2017 COLONOSCOPY 08/19/2023 Insurance Providers Payer Name Payer Address Payer Phone Subscriber Number Group Number Insured Name Patient Relationship to Insured Coverage Start Date Coverage End Date [facility] [address] [place] [phone] [id number] SAIGE KILGORE Self - patient is the insured Medical (General) History Medical History History ICD Code Colonoscopy 04/04/2003--no polyps Colonoscopy in 08/2012--small tubular adenomas, sigmoid diverticulosis, internal hemorrhoids HTN Hyperlipidemia Denies OR,DM,CVA,Lung disease,renal dise ase Hearing loss-hearing aids Colonoscopy 09/2017 with 2 small tubular adenomas Surgical History Surgery Date(Month/Year) Vasectomy
== END 2025-07-13 11:27 | disposition home or self-care (01) ==
LOC: HO.HPS 09:17
PROVIDERS: PCP Student in an Organized Health Care Education/Training Program; Referring Provider Student in an Organized Health Care Education/Training Program; Visit Provider Physician Assistant Medical
DX: Z87.891 Personal history of nicotine dependence (principal)
CPT/HCPCS: G0296

== ENCOUNTER 2025-07-13 09:51 | Outpatient (REF) | payer MEDICARE, SELFPAY ==
--- NOTE | ~2025-07-13 | CT_ITS ---
EXAMINATION: CT LUNG SCREENING HISTORY: Z87.891 - Personal history of nicotine dependence TECHNIQUE: Low dose axial images were obtained from the sternal notch to upper abdomen without IV contrast per standard departmental protocol. Sagittal and coronal reformatted images were also obtained and reviewed. One or more of the following techniques was used for dose reduction: Automated exposure control, adjustment of the mA and/or kV according to patient size, use of iterative reconstruction technique. DLP: 62 mGy-cm COMPARISON: There are no prior studies available for comparison. FINDINGS: Lung nodules: Azygos lobe. No pulmonary nodules. Increased soft tissue at adjacent to the left lateral tracheal wall. This is mixed with air and probably representing patient's secretions. Emphysema: none Coronary Calcification: none Aortic Arch Calcification: mild Potentially Significant Incidentals : none Additional Chest Findings: There is no pleural or pericardial effusion. No mediastinal or axillary lymphadenopathy is identified. Visualized upper abdomen: The visualized portions of the liver, spleen, and adrenals have an unremarkable unenhanced appearance. Degenerative changes of the spine. CT/CT lung screening IMPRESSION: No suspicious pulmonary nodules are identified. LUNG-RADS ASSESSMENT: Lung-RADS 1: Negative MANAGEMENT: Continue annual screening with LDCT in 12 months Category S: N/A Electronically signed by: Lisa Torres MD 07/13/2025 02:[address] [facility]
== END 2025-07-13 09:52 | disposition home or self-care (01) ==
LOC: HO.CT 09:51
PROVIDERS: PCP Student in an Organized Health Care Education/Training Program; Visit Provider Physician Assistant Medical
DX: Z87.891 Personal history of nicotine dependence (principal)
CPT/HCPCS: 71271; G0296

== ENCOUNTER → 2025-07-13 09:53 | Outpatient (BNV) | payer MEDICARE, SELFPAY | PROVIDERS: PCP Student in an Organized Health Care Education/Training Program; Visit Provider Radiology Diagnostic Radiology | DX: Z87.891 Personal history of nicotine dependence (principal) | CPT/HCPCS: 71271 ==